=== PATIENT | female | born 1985 | race Caucasian/White ===

== ENCOUNTER 2020-01-08 15:20 | Emergency (ER) | payer OTHER, SELFPAY ==
--- NOTE | ~2020-01-08 | CT_ITS ---
EXAMINATION: CT abdomen pelvis w con DATE: 01/08/2020 16:42 INDICATION: Right lower quadrant abdominal tenderness. TECHNIQUE: Computed tomography (CT) of the abdomen and pelvis was performed with 100 mL Omnipaque 350 intravenous contrast. Automated exposure control and iterative reconstruction technique were employe d. The dose-length product was 608.71 mGy-cm. COMPARISON: CT abdomen and pelvis 05/23/2010 FINDINGS: The visualized portions of the lung bases demonstrate mild atelectasis. No pleural effusion . The heart size is normal. No pericardial effusion. The liver, gallbladder, spleen, pancreas, and ad renal glands are normal. There is a 2 mm stone in right kidney. There is a 10 mm cyst in left kidney. There is a 2 mm stone in left kidney. There are no dilated loops of bowel. There is fat stranding ar ound an epiploic appendage of the colon at the hepatic flexure, consistent with epiploic appendagitis . The appendix is normal. There are no pathologically enlarged lymph nodes. There is no free intraper itoneal fluid. There is mild lumbar spondylosis. IMPRESSION: 1. Epiploic appendagitis involving the hepatic flexure of the colon. Reviewed, dictated and finalized at location A.
[2020-01-08 15:25] VITALS: BP 177/114; PULSE 92; RESP 18; TEMP 37.3; O2SAT 100
[2020-01-08 16:00] LABS: Add Urine Microscopic? NO; Appearance Urine Clear (Clear); Bilirubin Urine Negative (Negative); Blood Urine Negative (Negative); Color Urine Yellow (Yellow); Glucose Urine UA Negative (Negative); Ketones Urine Negative (Negative); Leukocyte Esterase Ur Negative LEU/UL (Negative); Nitrate Urine Negative (Negative); Protein Urine Negative (Negative); Specific Grav Ur 1.028 (1.001-1.035); Urobilinogen Urine Negative mg/dL (<2.0)
[2020-01-08 16:04] LABS: Basophils Percent Auto 0.3 % (0.2-1.2); Eosinophils Percent Auto 0.2 % (0-4.4); Hemoglobin 12.7 g/dL (12.0-15.0); Immature Granulocyte Absolute 0.03 K/mm3 (0.00-0.031); Immature Granulocyte Percent A 0.3 % (0-0.5); Lymphocytes Absolute Auto 2.28 K/mm3 (0.9-3.2); Lymphocytes Percent Auto 24.1 % (18.3-44.2); Mean Corpuscular HGB Conc 31.8 g/dl (32-36); Mean Corpuscular Hemoglobin 26.3 pg (26-34); Mean Platelet Volume 10.3 fl (7.4-10.4); Monocytes Absolute Auto 0.5 K/mm3 (0.1-0.6); Monocytes Percent Auto 5.7 % (2.6-8.5); Neutrophils Absolute Auto 6.6 K/mm3 (1.3-6.7); Neutrophils Percent Auto 69.4 % (45.5-73.1); Platelet Count Result 343 k/mm3 (150-375); Red Blood Count 4.82 M/mm3 (4.2-5.4); Red Cell Distribution Width 15.2 % (11.5-14.5); White Blood Count 9.5 K/mm3 (4.5-10.0)
--- NOTE | 2020-01-08 16:10 | ED.ABDPAIN ---
HPI - Abdominal Pain General Chief Complaint: Abdominal Pain Stated Complaint: abd pain Time Seen by Provider: 01/08/20 16:03 Source: patient Mode of arrival: ambulatory Limitations: no limitations History of Present Illness HPI narrative: This patient is a 34 year old female who presents with c/o right side abdominal pain x 2 day. She states her pain has been constant for 2 days. It is associated with nausea and she has not had anything to eat all day. She denies fever, chills or urinary symptoms. She has not taken anything pain. MD elicited complaint: abdominal pain Onset (ago): day(s) (2) Pain Consistency: constant Pain scale (0-10): 6 Radiation: none Migration to: no migration Associated symptoms: nausea Related Data Home Medications Medication Instructions Recorded Confirmed PNV cmb#[id number]-ferrous fumarate-FA 1 tablet PO DAILY 01/08/20 01/08/20 [] Allergies Allergy/AdvReac Type Severity Reaction Status Date / Time No Known Allergies Allergy Verified 01/08/20 15:29 Review of Systems Review of Systems: All systems reviewed & are unremarkable except as noted in HPI and below Constitutional: Constitutional: Denies chills and Denies fever(s) Gastrointestinal: Gastrointestinal: Reports abdominal pain, Denies constipation, Denies diarrhea, Reports nausea and Denies vomiting Genitourinary: Genitourinary: Denies hematuria, Denies nocturia, Denies dysuria and Denies flank pain Musculoskeletal: Musculoskeletal: Denies back pain PMFSH Past Medical History Medical History (Updated 01/08/20 @ 17:46 by Radha Dalton MD) Gestational diabetes Gestational hypertension Overweight (BMI 25.0-29.9) Surgical History Surgical History (Updated 06/23/19 @ 06:57 by Delmy Adkins CRNA) Previous section X 2 Social History Social History Smoking status: Never smoker Second hand tobacco smoke exposure: No Alcohol intake: never Substance use: never Gender identity (if verbalized by the patient): Female Spiritual care concerns: No Exam Narrative: Exam Narrative: GENERAL: Well-appearing, well-nourished, and in no acute distress. HEAD: Normocephalic, atraumatic EYES: PERRLA and EOMI, conjunctiva clear without discharge THROAT:Mucous membranes moist, Oropharynx normal without erythema, exudate, peritonsillar swelling or fluctuance NECK: Supple, without lymphadenopathy or mass RESPIRATORY: No respiratory distress, Airway patent, Respirations non-labored, Clear to auscultation without rales, rhonchi or wheeze HEART: Regular rate and rhythm. No murmur heard. Normal peripheral pulses. ABDOMEN: Soft, right mid tenderness, nondistended, normal active bowel sounds. No masses. No rebound , No organomegaly. EXTREMITIES: No edema, normal strength with full range of motion. SKIN: Warm, dry, normal color without rash NEURO: Alert and oriented x3. CN 2-12 grossly intact. No focal deficits. PSYCH: Normal mood and affect. Course Reevaluation(s) Reevaluation #1: I discussed with patient that she was found to have epiploic appendagitis. I discussed plan and discharge management. Date: 01/08/20 Time: 17:42 Vital Signs Vital signs: Vital Signs Temperature 99.2 F 01/08/20 15:25 Pulse Rate 92 01/08/20 15:25 Respiratory Rate 18 01/08/20 15:25 Blood Pressure 177/114 H 01/08/20 15:25 Pulse Oximetry 100 01/08/20 15:25 Temperature 99.2 F 01/08/20 15:25 Pulse Rate 83 01/08/20 18:16 Respiratory Rate 14 01/08/20 18:16 Blood Pressure 143/93 H 01/08/20 18:16 Pulse Oximetry 99 01/08/20 18:16 MDM - Abdominal Pain Differential Diagnosis Differential diagnosis: Likely abdominal pain, acute appendicitis, calculus of kidney, constipation, diverticulitis, gastroenteritis and small bowel obstruction Lab Data Attestation: I reviewed the patient's lab results. Result diagrams: 01/08/20 15:57 01/08/20 15:58 Labs: Lab Resul
[2020-01-08] MEDS: MORPHINE SULFATE 4 MG/ML INJ IV PUSH (16:15)
[2020-01-08] MEDS: ONDANSETRON INJ 4 MG/2 ML VIAL IV PUSH (16:15)
[2020-01-08 16:16] LABS: Alanine Aminotransferase 14 U/L (4-35); Albumin Level 4.8 g/dL (3.5-5.1); Alkaline Phosphatase 105 U/L (38-126); Aspartate Amino Transferase 19 U/L (14-36); Bilirubin,Total 0.3 mg/dL (0.2-1.3); Blood Urea Nitrogen 13 mg/dL (7-17); Calcium 9.4 mg/dL (8.4-10.2); Carbon Dioxide 24 mmol/L (22-30); Chloride 103 mmol/L (98-107); Estimated CRCL calculation 129 ml/min; Estimated Glomerular Filt Rate > 60; Glucose 96 mg/dL (65-105); Lipase 122 U/L (23-300); Potassium 3.4 mmol/L (3.4-5.0); Sodium 136 mmol/L (137-145)
[2020-01-08] MEDS: LACTATED RINGERS 1,000 ML 999 ML IV CONT (16:17)
[2020-01-08 16:47] VITALS: BP 154/100; PULSE 100; RESP 13; O2SAT 100
[2020-01-08 17:48] VITALS: BP 140/93; PULSE 85; RESP 14; O2SAT 98
[2020-01-08] MEDS: KETOROLAC 30 MG/ML VIAL (*BKC) IV PUSH (17:51)
[2020-01-08 18:16] VITALS: BP 143/93; PULSE 83; RESP 14; O2SAT 99
== END 2020-01-08 18:17 | disposition home or self-care (01) ==
PROVIDERS: Emergency Provider General Practice; PCP Family Medicine
DX: K63.89 Other specified diseases of intestine (principal)
CPT/HCPCS: 36415; 74177; 80053; 81003; 81025; 83690; 85025; 96361; 96374; 96375; 99284; J1885; J2270; J2405; J7120; Q9967

== ENCOUNTER → 2021-05-12 09:31 | Outpatient (REF) | payer OTHER, SELFPAY | LOC: ANHLAB 09:31 | PROVIDERS: PCP Family Medicine; Visit Provider Nurse Practitioner | DX: R22.9 Localized swelling, mass and lump, unspecified (principal) | CPT/HCPCS: 88304 ==

== ENCOUNTER 2022-01-13 04:41 | Day surgery (SDC) | payer OTHER, SELFPAY ==
[2022-01-03 15:08] VITALS: BMI 28.0
--- NOTE | 2022-01-03 15:15 | PC.NURSE ---
Report to the Outpatient Waiting Room, entrance under the green pavilion located off [address], at time 0900 on date 01/13/22. OR Time: 1100. - You and your visitor will be asked a series of questions to screen for COVID 19 for your protection. - Only one visitor is allowed at this time. - The patient visitor is requested to leave or wait in car when not with patient. - A mask is required within the hospital. Patients may have clear liquids (water, carbonated beverages, clear teas, apple juice) until 3 hours prior to surgery with a maximum of 20 ounces. - No food from midnight until time of surgery Take the following medications with a SIP of water the morning of surgery: NONE Medications to discontinue per physician: VITAMINS/SUPPLEMENTS Date to take last dose: 01/09/22 Please no make-up, nail andorran, hairspray, perfume, deodorant, or body powder the day of surgery. No jewelry (including any body piercings) or valuables the day of surgery, leave them at home. Please take a shower or bath the night before, or the morning of, surgery with an antibacterial soap. Wear comfortable, loose fitting clothing. - Jewelry must be removed prior to entering the operating room. Rings and piercings that are not removed may be cut off. - The hospital will not accept responsibility for valuables. - Please leave all valuables, including medications, at home the day of surgery. If you are going home after surgery, a licensed courier delivery driver must drive you home. - NO public transportation without another adult. - We recommend that an adult stay with you for 24 hours following discharge. - We also recommend that you do not drive, make important decision, drink alcoholic beverages, or take any drugs that were not prescribed by your health care provider for at least 24 hours after your discharge time. Follow any additional instructions given to you from your surgeon. If you or anyone in your household have experienced Covid symptoms in the past week, please notify your surgeon or the nurse liaison at the phone number below for possible testing. Telephone instructions given to PT - NICK BATISTA and asked if any additional questions and then verbalized understanding. Patient advised to call surgeon office or pre surgery nurse liaison [phone] if any additional questions.
--- NOTE | 2022-01-12 13:30 | PM.IMHP ---
H&P: HPI History of Present Illness Date/Time: 01/12/22 13:30 Chief Complaint: stress incontinence Narrative: this is a young woman with stress urinary incontinence. She would like it surgically corrected. She is here today for urethral sling her stress incontinence is confirmed on urodynamic Review of Systems Review of Systems: All systems reviewed & are unremarkable except as noted in HPI and below PMFSH Past Medical History Medical History Gestational diabetes Gestational hypertension Overweight (BMI 25.0-29.9) Surgical History Surgical History Previous section X 3 Family History Family History Mother Family history of thyroid disease Sibling Family history of thyroid disease Grandparent Family history of heart disease in male family member before age 55 Diabetes mellitus Social History Social History Smoking status: Never smoker Second hand tobacco smoke exposure: No Alcohol intake: never Substance use: never Substance use type: does not use Living arrangements: with family Gender identity (if verbalized by the patient): Female Spiritual care concerns: No Meds Home Medications and Allergies Home Medications Medication Instructions Recorded Confirmed Type ascorbic acid (vitamin C) 500 mg 500 mg PO DAILY 01/03/22 01/03/22 History tablet (Vitamin C) multivitamin 1 tablet PO DAILY 01/03/22 01/03/22 History zinc 50 mg tablet 50 mg PO DAILY 01/03/22 01/03/22 History lisinopril 10 mg tablet 10 mg PO DAILY 01/04/22 01/04/22 History Allergies Allergy/AdvReac Type Severity Reaction Status Date / Time No Known Allergies Allergy Verified 01/03/22 15:07 Exam Narrative: no acute distress alert orient x3 normal breathing positive urethral mobility Assessment and Plan Assessment and plan (1) AVEL (stress urinary incontinence, female): Code(s): N39.3 - Stress incontinence (female) (male) Status: Acute Assessment and Plan: plan for urethral sling. She understands the risks of bleeding, infection, obstructive voiding, mesh exposure, lack of efficacy. She agrees to proceed
--- NOTE | 2022-01-12 14:52 | P.PNAN_ITS ---
Anes - Initial Pre Proc Eval Procedure: Operation Date: 01/13/22 11:00 Proposed Procedures p Urethral Sling - Homero Farah MD Date/Time: 01/12/22 14:52 Surgeon: Homero Farah MD Pre Op Diagnosis: stress incontinence Patient Data Age: 36 Gender: F Height: 1.63 m Weight: 74 kg Allergies Allergy/AdvReac Type Severity Reaction Status Date / Time No Known Allergies Allergy Verified 01/03/22 15:07 Home Medications Medication Instructions Recorded Confirmed Type ascorbic acid (vitamin C) 500 mg 500 mg PO DAILY 01/03/22 01/03/22 History tablet (Vitamin C) multivitamin 1 tablet PO DAILY 01/03/22 01/03/22 History zinc 50 mg tablet 50 mg PO DAILY 01/03/22 01/03/22 History lisinopril 10 mg tablet 10 mg PO DAILY 01/04/22 01/04/22 History Patient hx anesthesia problems: none Family hx anesthesia problems: none Results Review: All pre-operative results and documents have been reviewed as part of the pre- operative evaluation. [facility] Past Medical History Medical History (Updated 01/12/22 @ 14:52 by Rogelio Jerez MD) Gestational diabetes Gestational hypertension HTN (hypertension) Overweight (BMI 25.0-29.9) Surgical History Surgical History Previous section X 3 Family History Family History Mother Family history of thyroid disease Sibling Family history of thyroid disease Grandparent Family history of heart disease in male family member before age 55 Diabetes mellitus Social History Social History Smoking status: Never smoker Second hand tobacco smoke exposure: No Alcohol intake: never Substance use: never Substance use type: does not use Living arrangements: with family Gender identity (if verbalized by the patient): Female Spiritual care concerns: No Anes - Eval Final PreProcedure Day of Procedure 01/12/22 14:52 Patient weight: overweight Heart: regular rate and rhythm Lungs: clear to auscultation and normal air movement Airway: Mallampati scale class II Neurological: alert and oriented Last oral intake: >/= 8 hours ASA classification: II Emergent: no Anesthetic plan: proceed Anesthesia type and monitoring: general Results Review: All pre-operative results and documents have been reviewed as part of the pre- operative evaluation. Informed Consent: The patient's anesthetic plan and its attendant risks and benefits were discussed with the patient/family/POA. Questions were solicited and answers provided to the satisfaction of the patient/family/POA.
--- NOTE | 2022-01-13 07:17 | WPDHPUPDATE1 ---
History and Physical Update Update Date/Time: 01/13/22 07:17 History and Physical has been reviewed, including an updated exam of the patient. There are NO changes in the patient's condition. Risks, benefits, and alternatives have been discussed and questions answered. Patient agrees to proceed with procedure.
[2022-01-13 09:34] VITALS: BMI 28.0
[2022-01-13 09:35] VITALS: BP 141/89; PULSE 74; RESP 16; TEMP 37.6; O2SAT 100
[2022-01-13] MEDS: LACTATED RINGERS 1,000 ML 30 ML IV CONT (09:44)
[2022-01-13] MEDS: ceFAZolin 2 GM/D5W 50 ML 2 GM/50 ML BAG IVPB (10:52)
[2022-01-13] MEDS: LIDO 2%/EPINEPHRINE 1:100,000 20 ML VIAL INFILTRATE (11:13)
[2022-01-13 11:26] VITALS: BP 146/70; PULSE 100; RESP 16; O2SAT 95
--- NOTE | 2022-01-13 11:29 | W.PM.PROC2 ---
Procedure Note - Detailed Date of Procedure 01/13/22 Pre-op Diagnosis stress incontinence Post-op Diagnosis Same Procedure Performed mid urethral sling cystoscopy Surgeon Homero Farah MD Roll Threader Operator none Anesthesia MAC Indications This is a female with confirm stress urinary incontinence. She desires surgical correction. She understands the risks of bleeding, infection, injury to the urinary tract, vaginal mesh extrusion, urinary tract mesh erosion, obstructive voiding requiring a secondary procedure, hip and leg pain, dyspareunia, inability to improve overactive bladder symptoms. She agrees to proceed. Findings Uncomplicated urethral sling Description of Procedure She was correctly identified. Informed consent obtained. She was brought the operating room. She was given appropriate anesthesia. She was given appropriate perioperative antibiotics. A time-out performed. I marked out the site of the inner thigh incisions. I anesthetized the skin and made those incisions. I anesthetized the anterior vaginal wall over the mid urethra. I made a 1 cm incision. I dissected out laterally taking great care not to injure the refilled vaginal wall. I passed the helical trocars. First on the left. Then on the right. I did this from the thigh incision towards the vaginal incision. The sling was connected to the trocars and brought out through the thigh incision. I tensioned the sling appropriately. I cut and the plastic sheaths. I then closed the incision with 2 0 Vicryl. On cystoscopy there is no tumors or surgical artifact. There was no surgical artifact in the urethra. I cut the excess sling material. Close incisions with glue. She was awakened and transferred to the PACU in stable condition. Implants Urethral sling Estimated Blood Loss 40 Drains No Packing No Pathology None sent Complications No immediate complications Condition Stable Disposition PACU
[2022-01-13 11:50] VITALS: BP 135/75; PULSE 81; RESP 20
[2022-01-13 12:15] VITALS: BP 140/88; PULSE 66; RESP 20
== END 2022-01-13 12:25 | disposition home or self-care (01) ==
PROVIDERS: PCP Physician Assistant; Visit Provider Urology
PROC: (CPT 57288; principal; 2022-01-13 11:00)
DX: N39.3 Stress incontinence (female) (male) (principal); I10 Essential (primary) hypertension
CPT/HCPCS: 57288; A9270; C1771; J0690; J2250; J2704; J3010; J7030; J7120

== ENCOUNTER 2023-03-28 11:46 | Outpatient (CLI) | payer OTHER, SELFPAY ==
--- NOTE | ~2023-03-28 | XR_ITS ---
EXAMINATION: XR abdomen/kub 1V DATE: 03/28/2023 12:07 INDICATION: Left-sided renal stone TECHNIQUE: A supine view of the abdomen on 2 radiographs was obtained. COMPARISON: CT dated 01/08/2020 FINDINGS: 3 x 1 mm thin linear stone at the lower pole of the left kidney. 3 mm round calcification at the infe rior left pelvis without correlate on the prior CT which could represent a new phlebolith or stone at the distalmost left ureter/ureterovesicular junction normal amount of gas and stool scattered throug hout the colon. No dilated loops of gas-filled bowel to suggest obstruction. Visualized portions of t he lung bases are clear. IMPRESSION: 1. 3 mm round calcification in the left hemipelvis indeterminate for phleboliths versus stone in the distalmost left ureter/ureterovesicular junction. 2. Additional 3 x 1 mm stone at the lower pole of the left kidney. Reviewed, dictated and finalized at location A. IMPRESSION: 1. 3 mm round calcification in the left hemipelvis indeterminate for phlebolith s versus stone in the distalmost left ureter/ureterovesicular junction. 2. Additional 3 x 1 mm stone at the lower pole of the left kidney.
== END 2023-03-28 11:47 | disposition home or self-care (01) ==
PROVIDERS: PCP Physician Assistant; Visit Provider Urology
DX: N20.0 Calculus of kidney (principal)
CPT/HCPCS: 74018

== ENCOUNTER 2023-03-29 13:29 | Outpatient (CLI) | payer OTHER, SELFPAY ==
--- NOTE | ~2023-03-29 | CT_ITS ---
EXAMINATION: CT abdomen pelvis wo con DATE: 03/29/2023 14:10 INDICATION: Kidney stone. Left lower quadrant abdominal pain. TECHNIQUE: Computed tomography (CT) of the abdomen and pelvis was performed without intravenous contr ast. Automated exposure control and iterative reconstruction technique were employed. The dose-length product was 543.58 mGy-cm. COMPARISON: CT abdomen and pelvis 01/08/2020 FINDINGS: The visualized portions of the lung bases are clear without pneumonia or pleural effusion. The heart size is normal. No pericardial effusion. The liver, gallbladder, spleen, pancreas, and adre nal glands are normal. There is a 3 mm stone in right kidney. There is a 2 mm stone in left kidney. T here are no dilated loops of bowel. The appendix is normal. There are no pathologically enlarged lymp h nodes. There is no free intraperitoneal fluid. There is mild thoracic and lumbar spondylosis. IMPRESSION: 1. Small bilateral nonobstructing kidney stones. Reviewed, dictated and finalized at location E.
== END 2023-03-29 13:30 | disposition home or self-care (01) ==
LOC: ANHIMG 13:31
PROVIDERS: PCP Physician Assistant; Visit Provider Urology
DX: N20.0 Calculus of kidney (principal)
CPT/HCPCS: 74176

== ENCOUNTER 2023-11-13 12:18 | Outpatient (CLI) | payer OTHER, SELFPAY ==
--- NOTE | ~2023-11-13 | XR_ITS ---
Supine and upright views of the abdomen Clinical history: Abdominal pain Findings: Bowel gas pattern is nonspecific. No evidence for obstruction or free air. No abnormal mass lesion or calcification is seen. Osseous structures are intact. Impression: No significant abnormality is seen. Reviewed, dictated and finalized at [facility]. Impression: No significant abnormality is seen.
== END 2023-11-13 12:19 | disposition home or self-care (01) ==
PROVIDERS: PCP Physician Assistant; Visit Provider Urology
DX: N20.0 Calculus of kidney (principal)
CPT/HCPCS: 74018

== ENCOUNTER 2024-09-14 02:53 | Emergency (ER) | payer OTHER, SELFPAY ==
--- NOTE | ~2024-09-14 | CT_ITS ---
CLINICAL INDICATION: Left flank pain COMPARISON: 03/29/2023. TECHNIQUE: Multiple contiguous axial images of the abdomen and pelvis were performed without the admi nistration of intravenous contrast The dose-length product (DLP) was 733.28 mGy-cm. Automated exposure control and iterative reconstruction technique were employed. FINDINGS/OBSERVATIONS: Visualized lower thorax: The bilateral lung bases are clear. The heart is of normal size, without pericardial effusion. Small hiatal hernia is present. Liver: The liver demonstrates homogeneous attenuation and is not enlarged measuring 18 cm in longitudinal di mension. Gallbladder and biliary system: The gallbladder is only minimally distended, and otherwise unremarkable. Pancreas: Limited evaluation of the pancreas secondary to the lack of intravenous contrast. Spleen: The spleen demonstrates homogeneous attenuation and is not enlarged measuring 8 cm in longitudinal di mension. Kidneys: Left-sided hydroureteronephrosis secondary to a 4 mm calculus within the proximal left ureter. The right kidney and ureter are unremarkable. Adrenal glands: Unremarkable. Gastrointestinal tract: Fecal stasis within the colon. Appendix: The appendix is not definitively visualized. However, no pericecal inflammatory change is identified suggest the presence of acute appendicitis. Vasculature: Unremarkable. Lymph nodes: Limited evaluation without intravenous contrast. Pelvic structures: The bladder is minimally distended, and otherwise unremarkable. The uterus is anteverted and retroflexed, enlarged and nodular. Body wall and musculoskeletal: Small fat-containing umbilical hernia. No significant degenerative disease within the lower thoracic or lumbosacral spine. IMPRESSION: Left-sided hydroureteronephrosis secondary to a 4 mm calculus within the proximal left ureter. Fibroid uterus. Reviewed, dictated and finalized at location A. [facility] IMPRESSION: Left-sided hydroureteronephrosis secondary to a 4 mm calculus within the proxim al left ureter. Fibroid uterus.
[2024-09-14 02:54] VITALS: BP 132/80; PULSE 58; RESP 15; TEMP 36.6; O2SAT 100
--- OUTSIDE RECORDS SUMMARY | 2024-09-14 02:54 | XMS_ITS | Referral Summary ---
Author Organization [facility] Address [address] [place] [address] Care Team Providers Care Chain Mortiser Operator Name Role Phone Angel Hernandez MD Unavailable [phone] Source Comments [facility],non-owned Affiliates and Associated Physician Practices is amultiple site organization consisting of ambulatory clinics and hospital sitesin [place], [place], [place] and [place]. This disclosure is being madepursuant to the Care Everywhere program and may not contain all information available regarding this patient. Last updated 18.[facility] Allergies No known active allergies Medications * Be aware that medications may not be up to date on this document. Alwaysverify current medications with the patient. Medication Sig Dispensed Refills Start Date End Date Status guanFACINE (TENEX) 2 MG tablet Take 2 mg by mouth at bedtime Active benzonatate (TESSALON) 200 MG capsuleIndications:A cute maxillary sinusitis, recurrence not specified Take 1 capsule by mouth 3 times daily as needed for Cough 30 capsule 10/02/2018 Active Social History Tobacco Use Types Packs/Day Years Used Date Smoking Tobacco: Never Smokeless Tobacco: Never Alcohol Use Standard Drinks/Week Comments No 0 (1 standard drink = 0.6 oz pur e alcohol) Sex and Gender Information Value Date Recorded Sex Assigned at Not on file Gender Identity Not on file Sexual Orientation Not on file Last Filed Vital Signs Vital Sign Reading Time Taken Comments Blood Pressure 126/84 10/02/2018 4:27 PM EXPENDITURE REQUISITION CLERK Pulse 88 10/02/2018 4:27 PM EXPENDITURE REQUISITION CLERK Temperature 36.7 C (98 F) 10/02/2018 4:27 PM EXPENDITURE REQUISITION CLERK Respiratory Rate 16 10/02/2018 4:27 PM EXPENDITURE REQUISITION CLERK Oxygen Saturation 98% 10/02/2018 4:27 PM EXPENDITURE REQUISITION CLERK Inhaled Oxygen Concentration - - Weight 72.6 kg (160 lb) 10/02/2018 4:27 PM EXPENDITURE REQUISITION CLERK Height 160 cm (5' 3 ) 10/02/2018 4:27 PM EXPENDITURE REQUISITION CLERK Body Mass Index 28.34 10/02/2018 4:27 PM EXPENDITURE REQUISITION CLERK Plan of Treatment Not on file Care Teams Chain Mortiser Operator Relationship Specialty Start Date End Date Angel Hernandez MD PCP - OBGYN 07/20/08
--- OUTSIDE RECORDS SUMMARY | 2024-09-14 02:54 | XMS_ITS | Patient Health Summary ---
Author Organization [facility] ([employer] Address [address] [place] [address] Care Team Providers Care Signals Collection Technician Name Role Phone Angel Hernandez MD Unavailable [phone] Note from [facility],non-owned Affiliates and Associated Physician Practices is amultiple site organization consisting of ambulatory clinics and hospital sitesin [place] and [place]. This disclosure is being madepursuant to the Care Everywhere program and may not contain all information available regarding this patient. Last updated 18.[facility] ([employer] Allergies No known active allergies Medications * Be aware that medications may not be up to date on this document. Alwaysverify current medications with the patient. * guanFACINE (TENEX) 2 MG tablet Take 2 mg by mouth at bedtime * benzonatate (TESSALON) 200 MG capsule(Started 10/02/2018) Take 1 capsule by mouth 3 times daily as needed for Cough Social History Tobacco Use Types Packs/Day Years [...] Comments Blood Pressure 126/84 10/02/2018 4:27 PM ELECTRON GUN ASSEMBLER Pulse 88 10/02/2018 4:27 PM ELECTRON GUN ASSEMBLER Temperature 36.7 C (98 F) 10/02/2018 4:27 PM ELECTRON GUN ASSEMBLER Respiratory Rate 16 10/02/2018 4:27 PM ELECTRON GUN ASSEMBLER Oxygen Saturation 98% 10/02/2018 4:27 PM ELECTRON GUN ASSEMBLER Inhaled Oxygen Concentration - - Weight 72.6 kg (160 lb) 10/02/2018 4:27 PM ELECTRON GUN ASSEMBLER Height 160 cm (5' 3 ) 10/02/2018 4:27 PM ELECTRON GUN ASSEMBLER Body Mass Index 28.34 10/02/2018 4:27 PM ELECTRON GUN ASSEMBLER Procedures * STREP A SCREEN - POINT OF CARE (AMB) STL(Performed 06/27/2017) Performed for Acute nasopharyngitis Results * STREP A SCREEN (06/27/2017) Strep A Rapid POCT Negative Negative Strep A Internal Control Present Lot # [id number] Expiration Date [id number] Throat ENTIRE THROAT (SURFACE REGION OF NECK) / Unknown 06/27/2017 [facility] PIN SORTER AND BAGGER-RN POOL LAB - POINT OF CARE ORDERABLES Care Teams Signals Collection Technician Relationship Specialty Start Date End Date Angel Hernandez MD PCP - OBGYN 07/20/08
--- OUTSIDE RECORDS SUMMARY | 2024-09-14 02:54 | XMS_ITS | Clinical Summary ---
Author Organization [facility] [address] [facility] Address [address] [place] [address] Care Team Providers Care Product Marketing Intern Name Role Phone Marcia Helms NP Primary Care Provider [phone] Allergies No known active allergies Medications yexugzgk-twvn-QW- calcium-mins 18 mg iron-400 mcg-500 mg Ca tablet Take by mouth daily Active ascorbic acid, vitamin C, 250 mg tablet,chewable Take by mouth daily Active vitamin b complex tablet Take 1 tablet by mouth daily Active riboflavin (Vitamin B-2) 100 mg tablet 3 Active lisinopriL (PRINIVIL,ZESTRIL ) 20 mg tabletIndications :Essential hypertension Take 1 tablet (20 mg total) by mouth daily 30 tablet 11 3 Active aspirin 81 mg chewable tablet Take 1 tablet (81 mg total) by mouth daily Active coenzyme Q10 10 mg capsule Take 1 capsule (10 mg total) by mouth daily Active metoprolol XL (TOPROL-XL) 25 mg extended release tabletIndications :Palpitations TAKE 1 TABLET(25 MG) BY MOUTH DAILY 90 tablet 4 Active Active Problems Problem Noted Date Diagnosed Date Hypersomnia 06/28/2023 Snoring 04/26/2023 Assessment & Plan (06/28/2023 2:21 PM MOSQUITO SPRAYER): Due to continuing symptoms of snoring and hypersomnia along with a normal home sleep test I have ordered a nocturnal polysomnogram split night protocol if necessary, no MSLT. Assessment & Plan (05/24/2023 3:48 PM CDT): The patient presents with loud snoring and daytime hypersomnia. I have recommended proceeding with a nocturnal polysomnogram with a split night protocol if necessary and no MSLT. She will follow up here in 3 months. Obesity (BMI 30-39.9) 01/29/2023 Assessment & Plan (04/26/2023 8:16 AM CDT): Discussed the patients BMI: The BMI is above average BMI management is complete. BMI follow-up includes: Nutrition Counseling and education provided Assessment & Plan (01/29/2023 7:55 AM CDT): BMI Follow-up includes: Discussed diet and exercising counseling. BMI 30.0-30.9,adult 01/29/2023 Assessment & Plan (01/29/2023 7:55 AM CDT): BMI Follow-up includes: Discussed diet and exercising counseling.BMI Follow-up includes: Discussed diet and exercising counseling. Palpitations 11/10/2022 Assessment & Plan (11/10/2022 8:52 AM CDT): This is a significant, separately identifiable problem that was evaluated and managed on the same day as the wellness exam Rosacea 02/09/2022 Assessment & Plan (02/09/2022 7:31 AM CDT): Will resume metrogel bid Will refer to sheyla to discuss further her desire to resume accutane Physical exam, annual 01/04/2022 Essential hypertension 01/04/2022 Assessment & Plan (02/09/2022 7:31 AM CDT): Patient advised to continue medications the same at this time. They will monitor home bp with goal 120-130/80s. Assessment & Plan (01/04/2022 9:20 AM CDT): Add lisinopril daily. They will monitor home bp with goal 120-130/80s. Fasting labs entered, will notify patient of results as available Discussed holter for palpitations, she declines at this time. Stress incontinence 01/04/2022 Assessment & Plan (01/04/2022 9:20 AM CDT): Has appt pending with urology for stress incontinence Resolved Problems Problem Noted Date Diagnosed Date Resolved Date BMI 29.0-29.9,adult 11/10/2022 01/30/20 23 BMI 30.0-30.9,adult 01/04/2022 12/15/19 23 Assessment & Plan (01/04/2022 9:20 AM CDT): Discussed the patient's BMI. The BMI is above average. BMI management plan is completed. BMI Follow-up includes: nutrition counseling, exercise counseling and education provided. Immunizations Immunization Administration Dates Next Due Influenza, Quadrivalent, Justine l Culture-based MDCK, Preservative Free, Antibiotic Free, Intramuscular 05/05/2019 Influenza, Unspecified 04/16/2023,05/13/2022 Tdap 05/18/2016 Surgical History Surgery Date Site/Laterality Comments BLADDER SUSPENSION SECTION Medical History Medical History Date Comments Hypertension Family History Medical History Relation Name Comments Hypertension Father No Known Problems Maternal Grandfather Thyroid disease Mother No Known Problems Paternal Grandfather Heart disease Paternal Grandmother Thyroid disease Sister Relation Name Status Comments Father Alive Maternal Grandfather Maternal Grandmother Alive Mother Alive Paternal Grandfather Paternal Grandmother Sister Alive Social History Tobacco Use Types Packs/Day Years Used Date Smoking Tobacco: Never Smokeless Tobacco: Never Tobacco Cessation:Counseling Given: Not Answered AUDIT-C Answer Date Recorded Q1: How often do you have a drink containing alcohol? Never 02/09/2022 Q2: How many drinks containi ng alcohol do you have on a typical day when you are drinking? Patient does not drink Q3: How often do you have si x or more drinks on one occasion? 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 Not on file Not on leonel e Obstetrics History Last Filed Vital Signs Vital Sign Reading Time Taken Comments Blood Pressure 136/86 06/28/2023 2:10 PM MOSQUITO SPRAYER Pulse 94 06/28/2023 2:10 PM MOSQUITO SPRAYER Temperature 37 C (98.6 F) 06/28/2023 2:10 PM MOSQUITO SPRAYER Respiratory Rate 18 06/28/2023 2:10 PM MOSQUITO SPRAYER Oxygen Saturation 98% 06/28/2023 2:10 PM MOSQUITO SPRAYER Inhaled Oxygen Concentration - - Weight 79.4 kg (175 lb) 06/28/2023 2:10 PM MOSQUITO SPRAYER Height 160 cm (5' 3 ) 06/28/2023 2:10 PM MOSQUITO SPRAYER Body Mass Index 31 06/28/2023 2:10 PM MOSQUITO SPRAYER Plan of Treatment Health Maintenance Due Date Last Done Comments Cervical Cancer Screening 1985 Hepatitis C Screening 1985 Varicella Vaccines (1 of 2 - 13+ 2-dose series) 1998 Hepatitis B Screening 2003 Regular Well Visit/Exam 18-64 11/11/2023 11/10/2022 Covid-19 Vaccine ( season) 2024 05/13/2021, 08/09/2020, 07/19/2020 Influenza Vaccine (#1) 2024 , 05/13/2022, 05/05/2019 Depression Screening 04/26/2024 04/26/2023, 01/29/2023, 12/14/2022, Additional history exists DTaP/Tdap/Td Vaccine (2 - Td or Tdap) 05/18/2026 05/18/2016 HPV Vaccines Aged Out No longer eligi ble based on patient's age to complete this topic Pneumococcal vaccine <65 Aged Out No longer eligible based on patient's age to complete this topic Insurance [facility] Care Teams Product Marketing Intern Relationship Specialty Start Date End Date Marcia Helms NP [address] [facility] [address] [place] [address] PCP - General Internal Medicine 11/10/22
--- OUTSIDE RECORDS SUMMARY | 2024-09-14 02:55 | XMS_ITS | Referral Summary ---
Author Organization [facility] [address] [facility] Address [address] [place] [address] Care Team Providers Care Director Of Epidemiology Name Role Phone Marcia Helms NP Primary Care Provider [phone] Allergies No known active allergies Medications dyksevug-kasi-VU- calcium-mins 18 mg iron-400 mcg-500 mg Ca [...] 04/26/2023 Assessment & Plan (06/28/2023 2:21 PM LAUNDRY SUPERINTENDENT): Due to continuing symptoms of snoring and [...] Intramuscular 05/05/2019 Influenza, Unspecified 04/16/2023,05/13/2022 Tdap 05/18/2016 Social History Tobacco Use Types Packs/Day Years [...] 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 file Not on leonel e Last Filed Vital Signs Vital Sign Reading Time Taken Comments Blood Pressure 136/86 06/28/2023 2:10 PM LAUNDRY SUPERINTENDENT Pulse 94 06/28/2023 2:10 PM LAUNDRY SUPERINTENDENT Temperature 37 C (98.6 F) 06/28/2023 2:10 PM LAUNDRY SUPERINTENDENT Respiratory Rate 18 06/28/2023 2:10 PM LAUNDRY SUPERINTENDENT Oxygen Saturation 98% 06/28/2023 2:10 PM LAUNDRY SUPERINTENDENT Inhaled Oxygen Concentration - - Weight 79.4 kg (175 lb) 06/28/2023 2:10 PM LAUNDRY SUPERINTENDENT Height 160 cm (5' 3 ) 06/28/2023 2:10 PM LAUNDRY SUPERINTENDENT Body Mass Index 31 06/28/2023 2:10 PM LAUNDRY SUPERINTENDENT Plan of Treatment Not on file Insurance [facility] Care Teams Director Of Epidemiology Relationship Specialty Start Date End Date Marcia Helms NP [address] [facility] [address] [place] [address] PCP - General Internal Medicine 11/10/22
--- OUTSIDE RECORDS SUMMARY | 2024-09-14 02:55 | XMS_ITS | Clinical Summary ---
Author Organization [facility] [employer] Address [address] [place] [address] Care Team Providers Care Lopper Name Role Phone Angel Hernandez MD Unavailable [phone] Source Comments [facility] [employer],non-owned Affiliates and Associated Physician Practices is amultiple site organization consisting of ambulatory clinics and hospital sitesin [place], [place], [place] and [place]. This disclosure is being madepursuant to the Care Everywhere program and may not contain all information available regarding this patient. Last updated 18.[facility] [employer] Allergies No known active allergies Medications * [...] Comments Blood Pressure 126/84 10/02/2018 4:27 PM CLIENT ACCOUNT SPECIALIST Pulse 88 10/02/2018 4:27 PM CLIENT ACCOUNT SPECIALIST Temperature 36.7 C (98 F) 10/02/2018 4:27 PM CLIENT ACCOUNT SPECIALIST Respiratory Rate 16 10/02/2018 4:27 PM CLIENT ACCOUNT SPECIALIST Oxygen Saturation 98% 10/02/2018 4:27 PM CLIENT ACCOUNT SPECIALIST Inhaled Oxygen Concentration - - Weight 72.6 kg (160 lb) 10/02/2018 4:27 PM CLIENT ACCOUNT SPECIALIST Height 160 cm (5' 3 ) 10/02/2018 4:27 PM CLIENT ACCOUNT SPECIALIST Body Mass Index 28.34 10/02/2018 4:27 PM CLIENT ACCOUNT SPECIALIST Plan of Treatment Health Maintenance Due Date Last Done Comments PAP SMEAR 1985 HIV SCREENING 2000 HEPATITIS C SCREENING 08/30/2003 DTAP/TDAP/TD VACCINES (1 - Tdap) 2004 HEPATITIS B VACCINE (1 of 3 - 19+ 3-dose series) 2004 COVID-19 VACCINE ( - 2023-2 5 season) 2024 INFLUENZA VACCINE (#1) 2024 DEPRESSION SCREENING 07/30/2024 ZOSTER VACCINE (1 of 2) 2035 HIB VACCINE Aged Out No longer eligi ble based on patient's age to complete this topic HPV VACCINE Aged Out No longer eligi ble based on patient's age to complete this topic MENINGOCOCCAL (Group B) VACCINE Aged Out No longer eligible based on patient's age to complete this topic MENINGOCOCCAL VACCINE Aged Out No emeterio alex eligible based on patient's age to complete this topic PNEUMOCOCCAL VACCINE Aged Out No long er eligible based on patient's age to complete this topic Care Teams Lopper Relationship Specialty Start Date End Date Angel Hernandez MD PCP - OBGYN 07/20/08
--- OUTSIDE RECORDS SUMMARY | 2024-09-14 03:41 | XMS_ITS | Patient Health Summary ---
Author Organization [facility] [employer] Address [address] [place] [address] Care Team Providers Care Hogshead Filler Name Role Phone Angel Hernandez MD Unavailable [phone] Note from [facility],non-owned Affiliates and Associated Physician Practices is amultiple site organization consisting of ambulatory clinics and hospital sitesin [place], [place], [place] and [place]. This disclosure is being madepursuant to the Care Everywhere program and may not contain all information available regarding this patient. Last updated 18.[facility] [employer] Allergies No known active allergies Medications * [...] Comments Blood Pressure 126/84 10/02/2018 4:27 PM FINANCIAL ANALYSIS ADVISOR Pulse 88 10/02/2018 4:27 PM FINANCIAL ANALYSIS ADVISOR Temperature 36.7 C (98 F) 10/02/2018 4:27 PM FINANCIAL ANALYSIS ADVISOR Respiratory Rate 16 10/02/2018 4:27 PM FINANCIAL ANALYSIS ADVISOR Oxygen Saturation 98% 10/02/2018 4:27 PM FINANCIAL ANALYSIS ADVISOR Inhaled Oxygen Concentration - - Weight 72.6 kg (160 lb) 10/02/2018 4:27 PM FINANCIAL ANALYSIS ADVISOR Height 160 cm (5' 3 ) 10/02/2018 4:27 PM FINANCIAL ANALYSIS ADVISOR Body Mass Index 28.34 10/02/2018 4:27 PM FINANCIAL ANALYSIS ADVISOR Procedures * STREP A SCREEN - POINT OF CARE (AMB) STL(Performed 06/27/2017) Performed for Acute nasopharyngitis Results * STREP A SCREEN (06/27/2017) Strep A Rapid POCT Negative Negative Strep A Internal Control Present Lot # [id number] Expiration Date [id number] Throat ENTIRE THROAT (SURFACE REGION OF NECK) / Unknown 06/27/2017 Laz Hooks FIVE ROLL REFINER BATCH MIXER-ORACLE EBS CONSULTANT LAB - POINT OF CARE ORDERABLES Care Teams Hogshead Filler Relationship Specialty Start Date End Date Angel Hernandez MD PCP - OBGYN 07/20/08
--- OUTSIDE RECORDS SUMMARY | 2024-09-14 03:41 | XMS_ITS | Referral Summary ---
Author Organization [facility] [employer] Address [address] [place] [address] Care Team Providers Care Director Of Business Operations Name Role Phone Angel Hernandez MD Unavailable Source Comments [facility] [employer],non-owned Affiliates and Associated Physician Practices is amultiple site organization consisting of ambulatory clinics and hospital sitesin [place], [place] and [place]. This disclosure is being madepursuant to the Care Everywhere program and may not contain all information available regarding this patient. Last updated 18.[facility] [employer] Allergies No known active allergies Medications * [...] Comments Blood Pressure 126/84 10/02/2018 4:27 PM RISK LEAD Pulse 88 10/02/2018 4:27 PM RISK LEAD Temperature 36.7 C (98 F) 10/02/2018 4:27 PM RISK LEAD Respiratory Rate 16 10/02/2018 4:27 PM RISK LEAD Oxygen Saturation 98% 10/02/2018 4:27 PM RISK LEAD Inhaled Oxygen Concentration - - Weight 72.6 kg (160 lb) 10/02/2018 4:27 PM RISK LEAD Height 160 cm (5' 3 ) 10/02/2018 4:27 PM RISK LEAD Body Mass Index 28.34 10/02/2018 4:27 PM RISK LEAD Plan of Treatment Not on file Care Teams Director Of Business Operations Relationship Specialty Start Date End Date Angel Hernandez MD PCP - OBGYN 07/20/08
--- OUTSIDE RECORDS SUMMARY | 2024-09-14 03:41 | XMS_ITS | Clinical Summary ---
Author Organization [facility] [email or web address] Address [address] [place] [address] Care Team Providers Care Coagulating Drying Supervisor Name Role Phone Angel Hernandez MD Unavailable [phone] Source Comments [facility] [email or web address],non-owned Affiliates and Associated Physician Practices is amultiple site organization consisting of ambulatory clinics and hospital sitesin [place], [place], [place] and [place]. This disclosure is being madepursuant to the Care Everywhere program and may not contain all information available regarding this patient. Last updated 18.[facility] [email or web address] Allergies No known active allergies Medications * [...] Comments Blood Pressure 126/84 10/02/2018 4:27 PM ANALYTICAL LEAD Pulse 88 10/02/2018 4:27 PM ANALYTICAL LEAD Temperature 36.7 C (98 F) 10/02/2018 4:27 PM ANALYTICAL LEAD Respiratory Rate 16 10/02/2018 4:27 PM ANALYTICAL LEAD Oxygen Saturation 98% 10/02/2018 4:27 PM ANALYTICAL LEAD Inhaled Oxygen Concentration - - Weight 72.6 kg (160 lb) 10/02/2018 4:27 PM ANALYTICAL LEAD Height 160 cm (5' 3 ) 10/02/2018 4:27 PM ANALYTICAL LEAD Body Mass Index 28.34 10/02/2018 4:27 PM ANALYTICAL LEAD Plan of Treatment Health Maintenance Due Date [...] age to complete this topic Care Teams Coagulating Drying Supervisor Relationship Specialty Start Date End Date Angel Hernandez MD PCP - OBGYN 07/20/08
--- OUTSIDE RECORDS SUMMARY | 2024-09-14 03:41 | XMS_ITS | Clinical Summary ---
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 Not on leonel e Obstetrics History Last Filed Vital Signs Vital Sign Reading Time Taken Comments Blood Pressure 136/86 06/28/2023 2:10 PM HOISTING LABORER Pulse 94 06/28/2023 2:10 PM HOISTING LABORER Temperature 37 C (98.6 F) 06/28/2023 2:10 PM HOISTING LABORER Respiratory Rate 18 06/28/2023 2:10 PM HOISTING LABORER Oxygen Saturation 98% 06/28/2023 2:10 PM HOISTING LABORER Inhaled Oxygen Concentration - - Weight 79.4 kg (175 lb) 06/28/2023 2:10 PM HOISTING LABORER Height 160 cm (5' 3 ) 06/28/2023 2:10 PM HOISTING LABORER Body Mass Index 31 06/28/2023 2:10 PM HOISTING LABORER Plan of Treatment Health Maintenance Due Date [...] patient's age to complete this topic Insurance [facility] Care Teams Wharf Tender Head Relationship Specialty Start Date End Date Marcia Helms NP [address] [facility] [address] [place] [address] PCP - General Internal Medicine 11/10/22
--- OUTSIDE RECORDS SUMMARY | 2024-09-14 03:41 | XMS_ITS | Referral Summary ---
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 Not on leonel e Last Filed Vital Signs Vital Sign Reading Time Taken Comments Blood Pressure 136/86 06/28/2023 2:10 PM NUTRITION COUNSELOR Pulse 94 06/28/2023 2:10 PM NUTRITION COUNSELOR Temperature 37 C (98.6 F) 06/28/2023 2:10 PM NUTRITION COUNSELOR Respiratory Rate 18 06/28/2023 2:10 PM NUTRITION COUNSELOR Oxygen Saturation 98% 06/28/2023 2:10 PM NUTRITION COUNSELOR Inhaled Oxygen Concentration - - Weight 79.4 kg (175 lb) 06/28/2023 2:10 PM NUTRITION COUNSELOR Height 160 cm (5' 3 ) 06/28/2023 2:10 PM NUTRITION COUNSELOR Body Mass Index 31 06/28/2023 2:10 PM NUTRITION COUNSELOR Plan of Treatment Not on file Insurance [facility] CHO[facility] PL[facility] HMO/PPO Address: [address] [address] [place] [address] [facility] CHOICE PLUS [facility] HMO/PPO Address: [address] [address] [place] [address] Care Teams Welder Fabricator Relationship Specialty Start Date End Date Marcia Helms NP [address] [facility] [address] [place] [address] PCP - General Internal Medicine 11/10/22
[2024-09-14] MEDS: SODIUM CHLORIDE 0.9% IV 1,000 ML 999 ML IV CONT (04:20)
[2024-09-14] MEDS: HYDROmorphone HCL INJ (*CRX) 1 MG/ML SYR IV PUSH ×2 (04:21→05:02)
[2024-09-14] MEDS: ONDANSETRON INJ 4 MG/2 ML VIAL IV PUSH (04:21)
[2024-09-14 04:26] LABS: Basophils Percent Auto 0.4 % (0.2-1.2); Eosinophils Absolute Auto 0.1 K/mm3 (0-0.3); Eosinophils Percent Auto 0.5 % (0-4.4); Hematocrit 37.5 % (37.0-47.0); Immature Granulocyte Absolute 0.02 K/mm3 (0.00-0.031); Immature Granulocyte Percent A 0.2 % (0-0.5); Lymphocytes Absolute Auto 2.28 K/mm3 (0.9-3.2); Lymphocytes Percent Auto 24.8 % (18.3-44.2); Mean Corpuscular Hemoglobin 27.2 pg (26-34); Mean Platelet Volume 10.1 fl (7.4-10.4); Monocytes Absolute Auto 0.6 K/mm3 (0.1-0.6); Monocytes Percent Auto 6.1 % (2.6-8.5); Neutrophils Absolute Auto 6.2 K/mm3 (1.3-6.7); Platelet Count Result 284 k/mm3 (150-375); Red Blood Count 4.41 M/mm3 (4.2-5.4); White Blood Count 9.2 K/mm3 (4.5-10.0)
[2024-09-14 04:37] LABS: Alanine Aminotransferase 21 U/L (6-35); Albumin Level 4.4 g/dL (3.5-5.1); Alkaline Phosphatase 96 U/L (38-126); Anion Gap 16 mmol/L (4-12); Aspartate Amino Transferase 21 U/L (14-36); Bilirubin,Total 0.3 mg/dL (0.2-1.3); Blood Urea Nitrogen 18 mg/dL (7-17); Calcium 9.1 mg/dL (8.4-10.2); Carbon Dioxide 21 mmol/L (22-30); Chloride 105 mmol/L (98-107); Estimated CRCL calculation 95 ml/min; Estimated Glomerular Filt Rate > 60; Glucose 143 mg/dL (65-110); Lipase 71 U/L (23-300); Potassium 3.4 mmol/L (3.4-5.0); Sodium 142 mmol/L (137-145)
--- NOTE | 2024-09-14 05:10 | PC.NURSE ---
This RN had pt attempt to give urine sample at this time. Pt was unsuccessful and states she was unable to go.
[2024-09-14 05:55] VITALS: BP 127/84; PULSE 67; RESP 18; O2SAT 100
[2024-09-14 06:22] LABS: Add Urine Microscopic? YES; Appearance Urine Turbid (Clear); Bacteria Urine 1+ /hpf; Bilirubin Urine Negative (Negative); Blood Urine 3+ (Negative); Color Urine Yellow (Yellow); Glucose Urine UA Negative (Negative); Ketones Urine 1+ mg/dL (Negative); Leukocyte Esterase Ur 1+ LEU/UL (Negative); Need Manual Microscopic Reviewed; Nitrate Urine Negative (Negative); Non Pathogenic Casts 0-2; Protein Urine 1+ mg/dL (Negative); RBC Urine >100 /hpf (0-2); Specific Grav Ur 1.019 (1.001-1.035); Squamous Epithelial Cell Urine Moderate /hpf (Few); WBC Urine 0-5 /hpf (0-3); pH Urine 5.5 (5.0-9.0)
--- NOTE | 2024-09-14 06:42 | ED_ITS ---
HPI - General Adult General Chief complaint: Abdominal Pain Stated complaint: abdominal/back pain Time Seen by Provider: 09/14/24 03:21 History of Present Illness HPI narrative: This is a 39-year-old female presenting with left flank pain. Symptoms started in the middle the night. Sharp pain in her left flank that radiates into her abdomen. No urinary symptoms. No fevers or chills. She has had some vomiting. Related Data Home Medications ?Medication ?Instructions ?Recorded ?Confirmed ?Last Taken ?Type ascorbic acid (vitamin C) 500 mg 500 mg PO DAILY 01/03/22 01/13/22 01/09/22 History tablet (Vitamin C) multivitamin 1 tablet PO DAILY 01/03/22 01/13/22 01/09/22 History zinc 50 mg tablet 50 mg PO DAILY 01/03/22 01/13/22 01/09/22 History lisinopril 10 mg tablet 10 mg PO DAILY 01/04/22 01/13/22 01/12/22 History Allergies Allergy/AdvReac Type Severity Reaction Status Date / Time No Known Allergies Allergy Verified 09/14/24 03:02 [facility] Past Medical History Medical History HTN (hypertension) Overweight (BMI 25.0-29.9) Gestational hypertension Gestational diabetes Surgical History Surgical History Previous section X 3 Family History Family History Mother Family history of thyroid disease Sibling Family history of thyroid disease Grandparent Family history of heart disease in male family member before age 55 Diabetes mellitus Social History Social History Smoking status: Never smoker Second hand tobacco smoke exposure: No Alcohol intake: never Substance use: never Substance use type: does not use Living arrangements: with family Gender identity (if verbalized by the patient): Female Spiritual care concerns: No Exam 2 Narrative: APPEARANCE: No apparent distress. Head: atraumatic. EYES: EOMI, NOSE: Atraumatic NECK: Trachea midline RESPIRATORY: No increased rate of breathing, CTAB CARDIOVASCULAR: RRR, no peripheral edema ABDOMINAL: Non-distended soft nontender no guarding rebound, no CVA tenderness MUSCULOSKELETAl: No obvious deformities NEURO: Alert. Moving 4/4 extremities SKIN:: Warm, dry. Normal color PSYCHIATRIC: Normal affect Back/Spine/Pelvis: Cervical Spine: collar present Course Vital Signs Vital signs: Vital Signs Temperature 97.9 F 09/14/24 02:54 Pulse Rate 58 L 09/14/24 02:54 Respiratory Rate 15 09/14/24 02:54 Blood Pressure 132/80 09/14/24 02:54 Pulse Oximetry 100 09/14/24 02:54 Oxygen Delivery Room Air 09/14/24 02:54 Temperature 97.9 F 09/14/24 02:54 Pulse Rate 67 09/14/24 05:55 Respiratory Rate 18 09/14/24 05:55 Blood Pressure 127/84 09/14/24 05:55 Pulse Oximetry 100 09/14/24 05:55 Oxygen Delivery Room Air 09/14/24 02:54 Medical Decision Making MDM Narrative Medical decision making narrative: -Course: 39-year-old female presenting with left-sided flank pain. Found to have a 3 mm stone. Pain was controlled in the ED. No signs of infection. Patient be discharged with appropriate meds in Urology follow-up. -DDX includes but is not limited to: Kidney stone, septic stone, muscle strain Vital Signs Vital Signs: Vital Signs Temperature 97.9 F 09/14/24 02:54 Pulse Rate 58 L 09/14/24 02:54 Respiratory Rate 15 09/14/24 02:54 Blood Pressure 132/80 09/14/24 02:54 Pulse Oximetry 100 09/14/24 02:54 Oxygen Delivery Room Air 09/14/24 02:54 Temperature 97.9 F 09/14/24 02:54 Pulse Rate 67 09/14/24 05:55 Respiratory Rate 18 09/14/24 05:55 Blood Pressure 127/84 09/14/24 05:55 Pulse Oximetry 100 09/14/24 05:55 Oxygen Delivery Room Air 09/14/24 02:54 Lab Data 09/14/24 04:22 09/14/24 04:22 Labs: Lab Results 09/14/24 09/14/24 Range/Units 04:22 06:03 WBC 9.2 (4.5-10.0) K/mm3 RBC 4.41 (4.2-5.4) M/mm3 Hgb 12.0 (12.0-15.0) g/dL Hct 37.5 (37.0-47.0) % MCV 85.0 (80-100) fl MCH 27.2 (26-34) pg MCHC 32.0 (32-36) g/dl RDW 14.0 (11.5-14.5) % Plt Count 284 (150-375) k/mm3 MPV 10.1 (7.4-10.4) fl Immature Gran % (Auto) 0.2 (0-0.5) % Neut % (Auto) 68.0 (45.5-73.1) % Lymph % (Auto) 24.8 (18.3-44.2) % [place] % (Auto) 6.1 (2.6-8.5) % Eos % (Auto) 0.5 (0-4.4) % Baso % (Auto) 0.4 (0.2-1.2) % Lymph # (Auto) 2.28 (0.9-3.2) K/mm3 [place] # (Auto) 0.6 (0.1-0.6) K/mm3 Eos # (Auto) 0.1 (0-0.3) K/mm3 Baso # (Auto) 0.0 (0.0-0.1) K/mm3 Abs Immat Gran (auto) 0.02 (0.00-0.031) K/mm3 Absolute Neuts (auto) 6.2 (1.3-6.7) K/mm3 Absolute Nucleated RBC 0.000 (0.0-0.012) K/mm3 Nucleated RBC % 0.0 (0.0-0.2) % Sodium 142 (137-145) mmol/L Potassium 3.4 (3.4-5.0) mmol/L Chloride 105 (98-107) mmol/L Carbon Dioxide 21 L (22-30) mmol/L Anion Gap 16 H (4-12) mmol/L BUN 18 H (7-17) mg/dL Creatinine 0.68 L (0.7-1.0) mg/dL Estim Creat Clear Calc 95 ml/min Estimated GFR > 60 (59 - ) Glucose 143 H (65-110) mg/dL Calcium 9.1 (8.4-10.2) mg/dL Total Bilirubin 0.3 (0.2-1.3) mg/dL AST 21 (14-36) U/L ALT 21 (6-35) U/L Alkaline Phosphatase 96 (38-126) U/L Total Protein 8.0 (6.3-8.2) g/dL Albumin 4.4 (3.5-5.1) g/dL Lipase 71 (23-300) U/L Urine Color Yellow (Yellow) Urine Appearance Turbid H (Clear) Urine pH 5.5 (5.0-9.0) Ur Specific [place] 1.019 (1.001-1.035) Urine Protein 1+ H (Negative) mg/dL Urine Glucose (UA) Negative (Negative) mg/dL Urine Ketones 1+ H (Negative) mg/dL Ur Blood (Man) 3+ H (Negative) Urine Nitrate Negative (Negative) Urine Bilirubin Negative (Negative) Urine Urobilinogen 1.0 (<2.0) mg/dL Add Ur Microanalysis Reviewed Leukocyte Esterase Rfl 1+ H (Negative) SABINO/UL Urine RBC >100 H (0-2) /hpf Urine WBC 0-5 (0-3) /hpf Ur Squamous Epith Cells Moderate (Few) /hpf Urine Bacteria 1+ H /hpf Urine Casts 0-2 Discharge Plan Discharge Clinical Impression: Kidney stone Patient Disposition: Home, Self-Care Condition: Stable Instructions: Antibiotic Form, Kidney Stones (ED) Additional Instructions: You were seen in the emergency department for a kidney stone. Please use Motrin/Tylenol for pain. Use oxycodone for breakthrough pain. Use Zofran for nausea. Take Flomax to help pass the stone. Please follow-up with your Urologist for further management. Please return if you develop severe pain, fevers or intractable nausea and vomiting. Patient Language: Afghan Prescriptions: New ibuprofen 800 mg tablet 800 mg PO TID PRN (Reason: pain) 7 Days Qty: 21 0RF acetaminophen 500 mg tablet 1,000 mg PO TID PRN (Reason: nadja) 7 Days Qty: 42 0RF tamsulosin [Flomax] 0.4 mg capsule 0.4 mg PO DAILY Qty: 30 0RF ondansetron 4 mg tablet,disintegrating 4 mg PO Q8H PRN (Reason: nausea and vomiting) Qty: 30 0RF oxycodone 5 mg tablet 5 mg PO Q4H PRN (Reason: pain) Qty: 14 0RF No Action multivitamin Tablet 1 tablet PO DAILY ascorbic acid (vitamin C) [Vitamin C] 500 mg Tablet 500 mg PO DAILY zinc 50 mg Tablet 50 mg PO DAILY lisinopril 10 mg Tablet 10 mg PO DAILY hydrocodone-acetaminophen 5-325 mg tablet 1 tablet PO Q6H PRN (Reason: pain) Qty: 20 0RF Follow-up/Referrals: PHYSICIAN,LICENSED OCCUPATIONAL THERAPY ASSISTANT [Primary Care Provider] - Fabiano Chin MD [Physician] - 1 Week (Kidney stone)
[2024-09-14] MEDS: ACETAMINOPHEN 500 MG TABLET 1000 MG PO (07:03)
[2024-09-14] MEDS: KETOROLAC 15 MG/ML VIAL (*BKC) IV PUSH (07:04)
[2024-09-14 07:29] VITALS: BP 129/81; PULSE 85; RESP 20; O2SAT 97
--- NOTE | 2024-09-15 08:34 | P.HP_ITS ---
H&P: HPI History of Present Illness Date/Time: 09/15/24 08:34 Chief Complaint: Ureteral stone Narrative: she has a known history of stone disease. She is passed stones in the past. She has small bilateral renal stones which were being followed. She presented to the ER yesterday with a symptomatic left ureteral stone. CT scan shows a 3-4 mm left proximal ureteral stone. There was no signs of infection. She was not tolerating outpatient management and request a procedure to rid herself of the stone Review of Systems Review of Systems: All systems reviewed & are unremarkable except as noted in HPI and below PMFSH Past Medical History Medical History HTN (hypertension) Overweight (BMI 25.0-29.9) Gestational hypertension Gestational diabetes Surgical History Surgical History Previous section X 3 Family History Family History Mother Family history of thyroid disease Sibling Family history of thyroid disease Grandparent Family history of heart disease in male family member before age 55 Diabetes mellitus Social History Social History Smoking status: Never smoker Second hand tobacco smoke exposure: No Alcohol intake: never Substance use: never Substance use type: does not use Living arrangements: with family Gender identity (if verbalized by the patient): Female Spiritual care concerns: No Meds Home Medications and Allergies Home Medications ?Medication ?Instructions ?Recorded ?Confirmed ?Type ascorbic acid (vitamin C) 500 mg 500 mg PO DAILY 01/03/22 01/13/22 History tablet (Vitamin C) multivitamin 1 tablet PO DAILY 01/03/22 01/13/22 History zinc 50 mg tablet 50 mg PO DAILY 01/03/22 01/13/22 History lisinopril 10 mg tablet 10 mg PO DAILY 01/04/22 01/13/22 History hydrocodone 5 mg-acetaminophen 325 1 tablet PO Q6H PRN pain #20 tabs 01/13/22 R x mg tablet acetaminophen 500 mg tablet 1,000 mg (2 x 500 mg) PO TID PRN 09/14/24 Rx nadja 7 days #42 tabs ibuprofen 800 mg tablet 800 mg PO TID PRN pain 7 days #21 09/14/24 Rx tabs ondansetron 4 mg disintegrating 4 mg PO Q8H PRN nausea and 09/14/24 Rx tablet vomiting #30 tabs oxycodone 5 mg tablet 5 mg PO Q4H PRN pain #14 tabs 09/14/24 Rx tamsulosin 0.4 mg capsule (Flomax) 0.4 mg PO DAILY #30 caps 09/14/24 Rx Allergies Allergy/AdvReac Type Severity Reaction Status Date / Time No Known Allergies Allergy Verified 09/14/24 03:02 Exam Narrative: she is uncomfortable Const: General: cooperative and healthy appearing Nutritional Appearance: average body habitus HENMT: Head: normal to inspection Eyes: General: appearance normal, both eyes and all related structures Neck: Neck: normal visual inspection Resp: Effort & Inspection: normal respiratory effort and able to speak in complete sentences GI: Inspection: normal to inspection Skin: Lesions: no lesions Neuro: General: oriented to person, oriented to place and oriented to time Extrem: General: normal to inspection Psych: Appearance: grossly normal Assessment and Plan Assessment and plan (1) Ureteral stone: Code(s): N20.1 - Calculus of ureter Status: Acute Assessment and Plan: plan for cystoscopy, left retrograde pyelogram, left ureteroscopy, stone extraction, stent placement. She understands risks of bleeding, infection, inability remove the stone. Possibility only place a stent. She agrees to proceed
--- NOTE | 2024-09-15 08:37 | WPDHPUPDATE1 ---
History and Physical Update Update Date/Time: 09/15/24 08:37 History and Physical has been reviewed, including an updated exam of the patient. There are NO changes in the patient's condition. Risks, benefits, and alternatives have been discussed and questions answered. Patient agrees to proceed with procedure.
== END 2024-09-14 07:30 | disposition home or self-care (01) ==
PROVIDERS: Emergency Provider Emergency Medicine
DX: N13.2 Hydronephrosis with renal and ureteral calculous obstruction (principal); I10 Essential (primary) hypertension; E66.3 Overweight; Z68.31 Body mass index [BMI] 31.0-31.9, adult; Z79.899 Other long term (current) drug therapy; D25.9 Leiomyoma of uterus, unspecified
CPT/HCPCS: 36415; 74176; 80053; 81001; 83690; 85025; 96361; 96374; 96375; 96376; 99284; A9270; J1171; J1885; J2405; J7030

== ENCOUNTER 2024-09-15 09:56 | Day surgery (SDC) | payer OTHER, SELFPAY ==
[2024-09-15] VITALS (10 sets, daily range): BP systolic 120–170; BP diastolic 72–93; PULSE 63–92; RESP 14–18; TEMP 36.1–36.8; O2SAT 96–100; BMI 30.7
--- NOTE | ~2024-09-15 | XR_ITS ---
EXAMINATION: XR retrograde pyelo w/stent LT DATE: 09/15/2024 15:45 LIBER[facility] ARTS [facility]AN INDICATION: LEFT FLANK PAIN . TECHNIQUE: 6 fluoroscopic images and one cine clip of the left abdomen and pelvis were obtained paulo rasmussen left vertebrae pyelography with stent placement, performed by Homero Farah MD. I was not pres ent during the procedure. Fluoroscopy exposure time was 50.7 seconds. Air Kerma 23.63 mGy. DAP 1.14 m Gym2. COMPARISON: CT abdomen pelvis 09/14/2024 FINDINGS/IMPRESSION: Fluoroscopic documentation of left retrograde pyelography with stent placement. Please refer to the o perative note for complete procedural details . Reviewed, dictated and finalized at location K. RAL ARTS DEAN
--- NOTE | 2024-09-15 08:37 | HP_ITS ---
This report was moved to the correct visit on 09/16/2024. The original report was signed by Homero Farah MD on 09/15/24836. History and Physical Update Update Date/Time: 09/15/24 08:37 History and Physical has been reviewed, including an updated exam of the patient. There are NO changes in the patient's condition. Risks, benefits, and alternatives have been discussed and questions answered. Patient agrees to proceed with procedure. Please be advised this is a medical document. It is intended for kyyu-ky-utig communication. It is written in medical language and may contain unfamiliar abbreviations or verbiage. Medical documents are intended to carry relevant information, facts as evident, and the clinical opinion of the practitioner at the time of the encounter. This report may have been done utilizing a voice recognition system. Attempts have been made to correct errors. However, there may be uncorrected grammatical, spelling, and recognition errors present. The file time of this note does not necessarily represent the time the patient was seen. Report Initialized date/time: Homero Farah MD 09/15/24836 Electronically signed by: Homero Farah MD 09/15/24836 [facility]
--- NOTE | 2024-09-15 08:37 | HP_ITS ---
This report was moved to the correct visit on 09/16/2024. The original report was signed by Homero Farah MD on 09/15/24 0837. H&P: HPI History of Present Illness Date/Time: 09/15/24 08:34 Chief Complaint: Ureteral stone Narrative: she has a known history of stone disease. She is passed stones in the past. She has small bilateral renal stones which were being followed. She presented to the ER yesterday with a symptomatic left ureteral stone. CT scan shows a 3-4 mm left proximal ureteral stone. There was no signs of infection. She was not tolerating outpatient management and request a procedure to rid herself of the stone Review of Systems Review of Systems: All systems reviewed & are unremarkable except as noted in HPI and below PMFSH Past Medical History Medical History HTN (hypertension) Overweight (BMI 25.0-29.9) Gestational hypertension Gestational diabetes Surgical History Surgical History Previous section X 3 Family History Family History Mother Family history of thyroid diseaseSibling Family history of thyroid diseaseGrandparent Family history of heart disease in male family member before age 55 Diabetes mellitus Social History Social History Smoking status: Never smoker Second hand tobacco smoke exposure: No Alcohol intake: never Substance use: never Substance use type: does not use Living arrangements: with family Gender identity (if verbalized by the patient): Female Spiritual care concerns: No Meds Home Medications and Allergies Home Medications ?Medication ?Instructions ?Recorded ?Confirmed ?Type ascorbic acid (vitamin C) 500 mg 500 mg PO DAILY 01/03/22 01/13/22 History tablet (Vitamin C) multivitamin 1 tablet PO DAILY 01/03/22 01/13/22 History zinc 50 mg tablet 50 mg PO DAILY 01/03/22 01/13/22 History lisinopril 10 mg tablet 10 mg PO DAILY 01/04/22 01/13/22 History hydrocodone 5 mg-acetaminophen 325 1 tablet PO Q6H PRN pain #20 tabs 01/13/22 Rx mg tablet acetaminophen 500 mg tablet 1,000 mg (2 x 500 mg) PO TID PRN 09/14/24 Rx nadja 7 days #42 tabs ibuprofen 800 mg tablet 800 mg PO TID PRN pain 7 days #21 09/14/24 Rx tabs ondansetron 4 mg disintegrating 4 mg PO Q8H PRN nausea and 09/14/24 Rx tablet vomiting #30 tabs oxycodone 5 mg tablet 5 mg PO Q4H PRN pain #14 tabs 09/14/24 Rx tamsulosin 0.4 mg capsule (Flomax) 0.4 mg PO DAILY #30 caps 09/14/24 Rx Allergies Allergy/AdvReac Type Severity Reaction Status Date / Time No Known Allergies Allergy Verified 09/14/24 03:02 Exam Narrative: she is uncomfortable Const: General: cooperative and healthy appearing Nutritional Appearance: average body habitus HENMT: Head: normal to inspection Eyes: General: appearance normal, both eyes and all related structures Neck: Neck: normal visual inspection Resp: Effort & Inspection: normal respiratory effort and able to speak in complete sentences GI: Inspection: normal to inspection Skin: Lesions: no lesions Neuro: General: oriented to person, oriented to place and oriented to time Extrem: General: normal to inspection Psych: Appearance: grossly normal Assessment and Plan Assessment and plan (1) Ureteral stone: Code(s): N20.1 - Calculus of ureter Status: Acute Assessment and Plan: plan for cystoscopy, left retrograde pyelogram, left ureteroscopy, stone extraction, stent placement. She understands risks of bleeding, infection, inability remove the stone. Possibility only place a stent. She agrees to proceed Please be advised this is a medical document. It is intended for wpxr-yf-tctb communication. It is written in medical language and may contain unfamiliar abbreviations or verbiage. Medical documents are intended to carry relevant information, facts as evident, and the clinical opinion of the practitioner at the time of the encounter. This report may have been done utilizing a voice recognition system. Attempts have been made to correct errors. However, there may be uncorrected grammatical, spelling, and recognition errors present. The file time of this note does not necessarily represent the time the patient was seen. Report Initialized date/time: Homero Farah MD 09/15/24836 Electronically signed by: Homero Farah MD 09/15/[address] [facility]
--- NOTE | 2024-09-15 09:20 | PC.NURSE ---
Report to the Outpatient Waiting Room, entrance under the green pavilion located off [facility], at time _2pm_ on date _[id number]_. Planned Procedure Time: _4pm_.? Time changes happen often and if your time is changed the preop area will call you the afternoon before. - You and your visitor will be asked to self-screen and do not enter if you have any COVID symptoms. Please call surgeon if you need to reschedule. - A mask is optional within the hospital at this time. Patients may have clear liquids (water, carbonated beverages, clear teas, apple juice) until 3 hours prior to surgery with a maximum of 20 ounces. - No food from midnight until time of surgery and no smoking, or chewing tobacco (or any form of nicotine). No chewing gum, candy or mints. Take only the following medications with a SIP of water on the morning of surgery: __Acetaminophen and or Oxycodone if needed.____ DO NOT STOP ANY OF YOUR OTHER PRESCRIPTION MEDICATIONS PRIOR TO SURGERY EXCEPT THE FOLLOWING Hold all vitamins and supplements for 3 days per anesthesiologist. Medications to discontinue per physician Date to take last dose Patient has taken no vitamins or Ibuprofen today. Please no make-up, nail welsh, hairspray, perfume, deodorant, or body powder the day of surgery.? No jewelry (including any body piercings) or valuables the day of surgery, leave them at home.? Please take a shower or bath the night before, or the morning of, surgery with an antibacterial soap.? Wear comfortable, loose fitting clothing.? - Jewelry must be removed prior to entering the operating room.? Rings and piercings that are not removed may be cut off. - The hospital will not accept responsibility for valuables.? - Please leave all valuables, including medications, at home the day of surgery. If you are going home after surgery, a licensed patient transportation driver must drive you home.? - NO public transportation without another adult if you receive anesthesia. - We recommend that an adult stay with you for 24 hours following discharge. - We also recommend that you do not drive, make important decision, drink alcoholic beverages, or take any drugs that were not prescribed by your health care provider for at least 24 hours after your discharge time. Follow any additional instructions given to you from your surgeon. Telephone instructions given to __[place]__and asked if any additional questions and then verbalized understanding. Patient advised to call surgeon office or pre surgery nurse liaison [phone] if any additional questions.
--- OUTSIDE RECORDS SUMMARY | 2024-09-15 12:46 | XMS_ITS | Clinical Summary ---
Author Organization [facility] Address [address] [place] [address] Care Team Providers Care Appliquer Name Role Phone Angel Hernandez MD Unavailable [phone] Source Comments [facility],non-owned Affiliates and Associated Physician Practices is amultiple site organization consisting of ambulatory clinics and hospital sitesin [place], [place] and [place]. This disclosure is being madepursuant to the Care Everywhere program and may not contain all information available regarding this patient. Last updated 18.[facility] Allergies No known active allergies Medications * [...] Comments Blood Pressure 126/84 10/02/2018 4:27 PM HOT PRESS OPERATOR Pulse 88 10/02/2018 4:27 PM HOT PRESS OPERATOR Temperature 36.7 C (98 F) 10/02/2018 4:27 PM HOT PRESS OPERATOR Respiratory Rate 16 10/02/2018 4:27 PM HOT PRESS OPERATOR Oxygen Saturation 98% 10/02/2018 4:27 PM HOT PRESS OPERATOR Inhaled Oxygen Concentration - - Weight 72.6 kg (160 lb) 10/02/2018 4:27 PM HOT PRESS OPERATOR Height 160 cm (5' 3 ) 10/02/2018 4:27 PM HOT PRESS OPERATOR Body Mass Index 28.34 10/02/2018 4:27 PM HOT PRESS OPERATOR Plan of Treatment Health Maintenance Due Date [...] age to complete this topic Care Teams Appliquer Relationship Specialty Start Date End Date Angel Hernandez MD PCP - OBGYN 07/20/08
--- OUTSIDE RECORDS SUMMARY | 2024-09-15 12:46 | XMS_ITS | Patient Health Summary ---
Author Organization [facility] Address [address] [place] [address] Care Team Providers Care Associate Director Qa Name Role Phone Angel Hernandez MD Unavailable [phone] Note from [facility],non-owned Affiliates and Associated Physician Practices is amultiple site organization consisting of ambulatory clinics and hospital sitesin [place], [place], [place] and [place]. This disclosure is being madepursuant to the Care Everywhere program and may not contain all information available regarding this patient. Last updated 18.[facility] Allergies No known active allergies Medications * [...] Comments Blood Pressure 126/84 10/02/2018 4:27 PM LAWN AND TREE SERVICE SPRAY SUPERVISOR Pulse 88 10/02/2018 4:27 PM LAWN AND TREE SERVICE SPRAY SUPERVISOR Temperature 36.7 C (98 F) 10/02/2018 4:27 PM LAWN AND TREE SERVICE SPRAY SUPERVISOR Respiratory Rate 16 10/02/2018 4:27 PM LAWN AND TREE SERVICE SPRAY SUPERVISOR Oxygen Saturation 98% 10/02/2018 4:27 PM LAWN AND TREE SERVICE SPRAY SUPERVISOR Inhaled Oxygen Concentration - - Weight 72.6 kg (160 lb) 10/02/2018 4:27 PM LAWN AND TREE SERVICE SPRAY SUPERVISOR Height 160 cm (5' 3 ) 10/02/2018 4:27 PM LAWN AND TREE SERVICE SPRAY SUPERVISOR Body Mass Index 28.34 10/02/2018 4:27 PM LAWN AND TREE SERVICE SPRAY SUPERVISOR Procedures * STREP A SCREEN - POINT OF CARE (AMB) STL(Performed 06/27/2017) Performed for Acute nasopharyngitis Results * STREP A SCREEN (06/27/2017) Strep A Rapid POCT Negative Negative Strep A Internal Control Present Lot # [id number] Expiration Date [id number] Throat ENTIRE THROAT (SURFACE REGION OF NECK) / Unknown 06/27/2017 Laz Hooks MEDICAL CLAIMS SPECIALIST-MILLED LUMBER GRADER LAB - POINT OF CARE ORDERABLES Care Teams Associate Director Qa Relationship Specialty Start Date End Date Angel Hernandez MD PCP - OBGYN 07/20/08
--- OUTSIDE RECORDS SUMMARY | 2024-09-15 12:46 | XMS_ITS | Referral Summary ---
Author Organization [facility] [employer] Address [address] [place] [address] Care Team Providers Care Solar Thermal Installer Name Role Phone Angel Hernandez MD Unavailable Source Comments [facility],non-owned Affiliates and Associated Physician Practices is amultiple site organization consisting of ambulatory clinics and hospital sitesin [place], [place], [place] and [place]. This disclosure is being madepursuant to the Care Everywhere program and may not contain all information available regarding this patient. Last updated 18.[facility] Allergies No known active allergies Medications * [...] Comments Blood Pressure 126/84 10/02/2018 4:27 PM CRUSHER PLANT OPERATOR Pulse 88 10/02/2018 4:27 PM CRUSHER PLANT OPERATOR Temperature 36.7 C (98 F) 10/02/2018 4:27 PM CRUSHER PLANT OPERATOR Respiratory Rate 16 10/02/2018 4:27 PM CRUSHER PLANT OPERATOR Oxygen Saturation 98% 10/02/2018 4:27 PM CRUSHER PLANT OPERATOR Inhaled Oxygen Concentration - - Weight 72.6 kg (160 lb) 10/02/2018 4:27 PM CRUSHER PLANT OPERATOR Height 160 cm (5' 3 ) 10/02/2018 4:27 PM CRUSHER PLANT OPERATOR Body Mass Index 28.34 10/02/2018 4:27 PM CRUSHER PLANT OPERATOR Plan of Treatment Not on file Care Teams Solar Thermal Installer Relationship Specialty Start Date End Date Angel Hernandez MD PCP - OBGYN 07/20/08
--- OUTSIDE RECORDS SUMMARY | 2024-09-15 12:46 | XMS_ITS | Referral Summary ---
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 on file Not on leonel e Last Filed Vital Signs Vital Sign Reading Time Taken Comments Blood Pressure 136/86 06/28/2023 2:10 PM BIKE DESIGNER Pulse 94 06/28/2023 2:10 PM BIKE DESIGNER Temperature 37 C (98.6 F) 06/28/2023 2:10 PM BIKE DESIGNER Respiratory Rate 18 06/28/2023 2:10 PM BIKE DESIGNER Oxygen Saturation 98% 06/28/2023 2:10 PM BIKE DESIGNER Inhaled Oxygen Concentration - - Weight 79.4 kg (175 lb) 06/28/2023 2:10 PM BIKE DESIGNER Height 160 cm (5' 3 ) 06/28/2023 2:10 PM BIKE DESIGNER Body Mass Index 31 06/28/2023 2:10 PM BIKE DESIGNER Plan of Treatment Not on file Insurance [facility] CHOICE [facility]US [facility]/PPO Address: [address] [address] [place] [address] [facility] H[facility]/PPO Address: [address] [address] [place] [address] Care Teams Patient Account Analyst Relationship Specialty Start Date End Date Marcia Helms NP [address] [facility] [address] [place] [address] PCP - General Internal Medicine 11/10/22
--- OUTSIDE RECORDS SUMMARY | 2024-09-15 12:46 | XMS_ITS | Clinical Summary ---
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 Not on leonel e Obstetrics History Last Filed Vital Signs Vital Sign Reading Time Taken Comments Blood Pressure 136/86 06/28/2023 2:10 PM INFECTION CONTROL MANAGER Pulse 94 06/28/2023 2:10 PM INFECTION CONTROL MANAGER Temperature 37 C (98.6 F) 06/28/2023 2:10 PM INFECTION CONTROL MANAGER Respiratory Rate 18 06/28/2023 2:10 PM INFECTION CONTROL MANAGER Oxygen Saturation 98% 06/28/2023 2:10 PM INFECTION CONTROL MANAGER Inhaled Oxygen Concentration - - Weight 79.4 kg (175 lb) 06/28/2023 2:10 PM INFECTION CONTROL MANAGER Height 160 cm (5' 3 ) 06/28/2023 2:10 PM INFECTION CONTROL MANAGER Body Mass Index 31 06/28/2023 2:10 PM INFECTION CONTROL MANAGER Plan of Treatment Health Maintenance Due Date [...] patient's age to complete this topic Insurance [facility] CHO[facility]US [facility] HMO/PPO Address: [address] [place], [place] [id number] [facility] CHOICE PLUS [facility] H[facility]/PPO Address: [address] [place], [place] [id number] Care Teams Heavy Coil Winder Relationship Specialty Start Date End Date Marcia Helms NP [address] [facility] [address] [place] [address] PCP - General Internal Medicine 11/10/22
--- NOTE | 2024-09-15 14:15 | ECG_ITS ---
Test Date: 2024-09-15 14:33:37 Measurements Intervals [place] Rate: 67 P: 39 CA: 149 QRS: 19 QRSD: 93 T: 17 QT: 407 QTc: 433 Interpretive Statements SINUS RHYTHM POSSIBLE LEFT ATRIAL ENLARGEMENT VOLTAGE CRITERIA FOR LVH INFERIOR INFARCT, AGE INDETERMINATE BASELINE ARTIFACT- II, III, AVF ABNORMAL ECG No previous ECG available for comparison Electronically Signed On 09-15-2024 14:42:51 SUPERVISOR ASSEMBLING by Dariel Dominguez D.O.
[2024-09-15 14:16] LABS: BEDSIDEPREGUCG Negative (Negative)
--- NOTE | 2024-09-15 14:43 | WPDANESEPPF ---
Anes - Initial Pre Proc Eval Procedure: Operation Date: 09/15/24 16:00 Proposed Procedures p Cystoscopy, Left Ureteroscopy, Possible Left Retrograde Pyelogram, Possible Left Stone Extraction, Possible Left Stent Placement, Possible Holmium Laser Procedure - Homero Farah MD Date/Time: 09/15/24 14:43 Surgeon: Homero Farah MD Pre Op Diagnosis: left kidney stone Patient Data Age: 39 Gender: F Height: 1.6 m Weight: 79.8 kg Last Vital Signs Temp 36.8 C 09/15/24 14:05 Pulse 76 09/15/24 14:05 Resp 18 09/15/24 14:05 BP 170/91 H 09/15/24 14:05 Pulse Ox 100 09/15/24 14:05 O2 Del Method Room Air 09/15/24 14:05 Allergies Allergy/AdvReac Type Severity Reaction Status Date / Time No Known Allergies Allergy Verified 09/15/24 14:12 Home Medications ?Medication ?Instructions ?Recorded ?Confirmed ?Type ascorbic acid (vitamin C) 500 mg 500 mg PO DAILY 01/03/22 09/15/24 History tablet (Vitamin C) multivitamin 1 tablet PO DAILY 01/03/22 09/15/24 History zinc 50 mg tablet 50 mg PO DAILY 01/03/22 09/15/24 History lisinopril 10 mg tablet 10 mg PO DAILY 01/04/22 09/15/24 History acetaminophen 500 mg tablet 1,000 mg (2 x 500 mg) PO TID PRN 09/14/24 09/15/24 Rx nadja 7 days #42 tabs ibuprofen 800 mg tablet 800 mg PO TID PRN pain 7 days #21 09/14/24 09/15/24 Rx tabs ondansetron 4 mg disintegrating 4 mg PO Q8H PRN nausea and 09/14/24 09/15/24 Rx tablet vomiting #30 tabs oxycodone 5 mg tablet 5 mg PO Q4H PRN pain #14 tabs 09/14/24 09/15/24 Rx tamsulosin 0.4 mg capsule (Flomax) 0.4 mg PO DAILY #30 caps 09/14/24 09/15/24 Rx Laboratory Tests 09/15/24 14:14 POC Urine HCG, Qual Negative (Negative) Patient hx anesthesia problems: none Family hx anesthesia problems: none Results Review: All pre-operative results and documents have been reviewed as part of the pre-operative evaluation. [facility], [facility] Past Medical History Medical History HTN (hypertension) Overweight (BMI 25.0-29.9) Gestational hypertension Gestational diabetes Surgical History Surgical History Previous section X 3 Family History Family History Mother Family history of thyroid disease Sibling Family history of thyroid disease Grandparent Family history of heart disease in male family member before age 55 Diabetes mellitus Social History Social History Smoking status: Never smoker Second hand tobacco smoke exposure: No Alcohol intake: never Substance use: never Substance use type: does not use Living arrangements: with family Gender identity (if verbalized by the patient): Female Spiritual care concerns: No Anes - Eval Final PreProcedure Day of Procedure 09/15/24 14:43 Patient weight: obese Heart: regular rate and rhythm Lungs: clear to auscultation Airway: Mallampati scale class II Neurological: alert and oriented Last oral intake: >/= 8 hours ASA classification: III Emergent: no Anesthetic plan: proceed Anesthesia type and monitoring: general LMA and standard monitoring Results Review: All pre-operative results and documents have been reviewed as part of the pre-operative evaluation. Informed Consent: The patient's anesthetic plan and its attendant risks and benefits were discussed with the patient/family/POA. Questions were solicited and answers provided to the satisfaction of the patient/family/POA.
[2024-09-15] MEDS: LACTATED RINGERS 1,000 ML 30 ML IV CONT (14:50)
[2024-09-15] MEDS: fentaNYL CITRATE INJ (*CRX) 100 MCG/2 ML VIAL 25 MCG IV PUSH ×2 (14:54→14:57)
[2024-09-15] MEDS: ceFAZolin 2 GM/D5W 50 ML 2 GM/50 ML BAG IVPB (15:37)
[2024-09-15] MEDS: LIDOCAINE 2% GEL UROJET 10 ML PKG MUCOUS MEM (15:48)
[2024-09-15] MEDS: KETOROLAC 15 MG/ML VIAL (*BKC) IV PUSH (16:13)
--- NOTE | 2024-09-15 16:26 | W.PM.PROC2 ---
Procedure Note - Detailed Date of Procedure 09/15/24 Pre-op Diagnosis Left ureteral stone Post-op Diagnosis Same Procedure Performed Cystoscopy, left retrograde pyelogram, left ureteroscopy, basket stone extraction, stent placement Surgeon Homero Farah MD Anesthesia General Indications This is a young woman with a left proximal ureteral stone measuring 3-4 mm. She is attempting a trial of conservative stone passage and has significant discomfort. She elected for procedure remove her stone. We plan on ureteroscopy. She understands risks of bleeding, infection, damage to the urinary tract, inability remove the stone. She agrees to proceed Findings Proximal ureteral stone was pushed back into the kidney. It was extracted intact Description of Procedure She is correctly identified. Informed consent obtained. She was from the operating room. She was given general anesthesia. She was placed in dorsal lithotomy position. She was prepped and draped sterile fashion. Time-out performed. Cystoscopy revealed a normal appearing bladder without tumors or abnormalities. Ureteral orifices are normal. I did a gentle retrograde pyelogram on the left. Filling defect was seen the proximal left ureter. No extravasation. Mild hydronephrosis. I placed a guidewire into the kidney. I dilated the ureteral orifice with the 810 dilator. I then performed flexible ureteroscopy. I got up to the side of the proximal ureter the stone was no longer there. I then entered the kidney. I did retrograde pyelogram to outline ureteral anatomy and renal pelvic anatomy. I inspected all calices. The stone was encountered in a mid pole calyx. I was able to basket the stone with a escape basket. I was able to extract the stone intact. I examined the ureter on the way down and there was no additional stones. There was minimal trauma to the ureter. Under fluoroscopy I placed a 4.8 variable length stent proximal coil apple kidney. Distal coil in the bladder. The bladder was drained. The string was left on the stent and secured to her thigh. She was awakened transferred to PACU in stable condition Estimated Blood Loss 0 Drains Yes (stent) Pathology Yes (stone) Complications No immediate complications Condition Stable
--- NOTE | 2024-09-15 16:34 | SUR.OPER ---
Specimen given to Columba
== END 2024-09-15 17:52 | disposition home or self-care (01) ==
PROVIDERS: Visit Provider Urology
PROC: (CPT 52352; principal; 2024-09-15 16:00)
DX: N20.1 Calculus of ureter (principal); E66.9 Obesity, unspecified; Z68.31 Body mass index [BMI] 31.0-31.9, adult
CPT/HCPCS: 52352; 52332; 74420; 82365; 88300; 93005; C1769; C2617; J0690; J1100; J1885; J2250; J2405; J2704; J3010; J7120

== ENCOUNTER 2024-09-17 06:14 | Emergency (ER) | payer OTHER, SELFPAY ==
--- NOTE | ~2024-09-17 | CT_ITS ---
Non-contrast CT scan of the Abdomen and Pelvis Clinical indication: Left flank pain, self removal of stent earlier today Technique: 2.5 mm axial scans were obtained through the abdomen and pelvis without intravenous or or al contrast. Dose reduction technique was used on this scan by utilizing automated exposure control a nd iterative reconstruction technique. The dose-length product (DLP) was 303.76 mGy-cm. COMPARISON: 09/14/2024 Findings: Images through the lung bases reveal no abnormalities. There is mild left hydroureteronephrosis. No radiopaque stones present. No stent or stent fragment pr esent. The liver, spleen, pancreas, gallbladder, and adrenals appear normal. There is no aortic aneurysm. There is no evidence of bowel obstruction. Images through the pelvis were performed. There is no evidence of ascites or lymphadenopathy. Urinary bladder collapsed, limiting evaluation. No pelvic mass seen. Impression: Mild left hydroureteronephrosis. No stones or stent/stent fragment present. Reviewed, dictated and finalized at [facility]. [employer] SALES ADVISOR Impression: Mild left hydroureteronephrosis. No stones or stent/stent fragment present.
--- OUTSIDE RECORDS SUMMARY | 2024-09-17 06:17 | XMS_ITS | Patient Health Summary ---
Author Organization [facility] [employer] Address [address] [place] [address] Care Team Providers Care Historic Preservationist Name Role Phone Angel Hernandez MD Unavailable [phone] Note from [facility],non-owned Affiliates and Associated Physician Practices is amultiple site organization consisting of ambulatory clinics and hospital sitesin [place], [place], [place] and [place]. This disclosure is being madepursuant to the Care Everywhere program and may not contain all information available regarding this patient. Last updated 18.[facility] Allergies No known active allergies Medications * [...] Comments Blood Pressure 126/84 10/02/2018 4:27 PM BRILLIANDEER LOPPER Pulse 88 10/02/2018 4:27 PM BRILLIANDEER LOPPER Temperature 36.7 C (98 F) 10/02/2018 4:27 PM BRILLIANDEER LOPPER Respiratory Rate 16 10/02/2018 4:27 PM BRILLIANDEER LOPPER Oxygen Saturation 98% 10/02/2018 4:27 PM BRILLIANDEER LOPPER Inhaled Oxygen Concentration - - Weight 72.6 kg (160 lb) 10/02/2018 4:27 PM BRILLIANDEER LOPPER Height 160 cm (5' 3 ) 10/02/2018 4:27 PM BRILLIANDEER LOPPER Body Mass Index 28.34 10/02/2018 4:27 PM BRILLIANDEER LOPPER Procedures * STREP A SCREEN - POINT OF CARE (AMB) STL(Performed 06/27/2017) Performed for Acute nasopharyngitis Results * STREP A SCREEN (06/27/2017) Strep A Rapid POCT Negative Negative Strep A Internal Control Present Lot # [id number] Expiration Date [id number] Throat ENTIRE THROAT (SURFACE REGION OF NECK) / Unknown 06/27/2017 Laz Hooks STUD SETTER-NETWORKING ADMINISTRATOR LAB - POINT OF CARE ORDERABLES Care Teams Historic Preservationist Relationship Specialty Start Date End Date Angel Hernandez MD PCP - OBGYN 07/20/08
--- OUTSIDE RECORDS SUMMARY | 2024-09-17 06:17 | XMS_ITS | Referral Summary ---
Author Organization [facility] [employer] Address [address] [place] [address] Care Team Providers Care Membership Sales Manager Name Role Phone Angel Hernandez MD Unavailable [phone] Source Comments [facility] [employer],non-owned Affiliates and Associated Physician Practices is amultiple site organization consisting of ambulatory clinics and hospital sitesin [place], [place], [place] and [place]. This disclosure is being madepursuant to the Care Everywhere program and may not contain all information available regarding this patient. Last updated 18.[facility] [employer] Allergies No known active allergies Medications * [...] Comments Blood Pressure 126/84 10/02/2018 4:27 PM ASSISTANT PROJECT ENGINEER Pulse 88 10/02/2018 4:27 PM ASSISTANT PROJECT ENGINEER Temperature 36.7 C (98 F) 10/02/2018 4:27 PM ASSISTANT PROJECT ENGINEER Respiratory Rate 16 10/02/2018 4:27 PM ASSISTANT PROJECT ENGINEER Oxygen Saturation 98% 10/02/2018 4:27 PM ASSISTANT PROJECT ENGINEER Inhaled Oxygen Concentration - - Weight 72.6 kg (160 lb) 10/02/2018 4:27 PM ASSISTANT PROJECT ENGINEER Height 160 cm (5' 3 ) 10/02/2018 4:27 PM ASSISTANT PROJECT ENGINEER Body Mass Index 28.34 10/02/2018 4:27 PM ASSISTANT PROJECT ENGINEER Plan of Treatment Not on file Care Teams Membership Sales Manager Relationship Specialty Start Date End Date Angel Hernandez MD PCP - OBGYN 07/20/08
--- OUTSIDE RECORDS SUMMARY | 2024-09-17 06:17 | XMS_ITS | Clinical Summary ---
Author Organization [facility] Address [address] [place] [address] Care Team Providers Care Automotive Quality Engineer Name Role Phone Angel Hernandez MD Unavailable [phone] Source Comments [facility],non-owned Affiliates and Associated Physician Practices is amultiple site organization consisting of ambulatory clinics and hospital sitesin [place], [place] and [place]. This disclosure is being madepursuant to the Care Everywhere program and may not contain all information available regarding this patient. Last updated 18.[facility] Allergies No known active allergies Medications * [...] Comments Blood Pressure 126/84 10/02/2018 4:27 PM SQL SSRS DEVELOPER Pulse 88 10/02/2018 4:27 PM SQL SSRS DEVELOPER Temperature 36.7 C (98 F) 10/02/2018 4:27 PM SQL SSRS DEVELOPER Respiratory Rate 16 10/02/2018 4:27 PM SQL SSRS DEVELOPER Oxygen Saturation 98% 10/02/2018 4:27 PM SQL SSRS DEVELOPER Inhaled Oxygen Concentration - - Weight 72.6 kg (160 lb) 10/02/2018 4:27 PM SQL SSRS DEVELOPER Height 160 cm (5' 3 ) 10/02/2018 4:27 PM SQL SSRS DEVELOPER Body Mass Index 28.34 10/02/2018 4:27 PM SQL SSRS DEVELOPER Plan of Treatment Health Maintenance Due Date [...] age to complete this topic Care Teams Automotive Quality Engineer Relationship Specialty Start Date End Date Angel Hernandez MD PCP - OBGYN 07/20/08
--- OUTSIDE RECORDS SUMMARY | 2024-09-17 06:17 | XMS_ITS | Clinical Summary ---
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 Not on leonel e Obstetrics History Last Filed Vital Signs Vital Sign Reading Time Taken Comments Blood Pressure 136/86 06/28/2023 2:10 PM MANAGER CONTRACT Pulse 94 06/28/2023 2:10 PM MANAGER CONTRACT Temperature 37 C (98.6 F) 06/28/2023 2:10 PM MANAGER CONTRACT Respiratory Rate 18 06/28/2023 2:10 PM MANAGER CONTRACT Oxygen Saturation 98% 06/28/2023 2:10 PM MANAGER CONTRACT Inhaled Oxygen Concentration - - Weight 79.4 kg (175 lb) 06/28/2023 2:10 PM MANAGER CONTRACT Height 160 cm (5' 3 ) 06/28/2023 2:10 PM MANAGER CONTRACT Body Mass Index 31 06/28/2023 2:10 PM MANAGER CONTRACT Plan of Treatment Health Maintenance Due Date [...] patient's age to complete this topic Insurance [facility] CHOICE PLUS [facility] CHOICE PLUS Care Teams Replenisher Relationship Specialty Start Date End Date Marcia Helms NP [address] [facility] [address] [place] [address] PCP - General Internal Medicine 11/10/22
--- OUTSIDE RECORDS SUMMARY | 2024-09-17 06:17 | XMS_ITS | Referral Summary ---
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 on leonel e Last Filed Vital Signs Vital Sign Reading Time Taken Comments Blood Pressure 136/86 06/28/2023 2:10 PM SPRAY MAKER Pulse 94 06/28/2023 2:10 PM SPRAY MAKER Temperature 37 C (98.6 F) 06/28/2023 2:10 PM SPRAY MAKER Respiratory Rate 18 06/28/2023 2:10 PM SPRAY MAKER Oxygen Saturation 98% 06/28/2023 2:10 PM SPRAY MAKER Inhaled Oxygen Concentration - - Weight 79.4 kg (175 lb) 06/28/2023 2:10 PM SPRAY MAKER Height 160 cm (5' 3 ) 06/28/2023 2:10 PM SPRAY MAKER Body Mass Index 31 06/28/2023 2:10 PM SPRAY MAKER Plan of Treatment Not on file Insurance [facility] CHOICE PLUS [facility] CHOICE PLUS Care Teams Forensic Pathologist Relationship Specialty Start Date End Date Marcia Helms NP [address] [place] [address] PCP - General Internal Medicine 11/10/22
[2024-09-17 06:19] VITALS: TEMP 37.1
[2024-09-17 07:15] VITALS: BP 172/97; PULSE 63; RESP 20; O2SAT 98
[2024-09-17] MEDS: KETOROLAC 30 MG/ML VIAL (*BKC) IV PUSH (07:26)
[2024-09-17] MEDS: ONDANSETRON INJ 4 MG/2 ML VIAL IV PUSH (07:26)
[2024-09-17] MEDS: SODIUM CHLORIDE 0.9% IV 1,000 ML 999 ML IV CONT (07:26)
--- OUTSIDE RECORDS SUMMARY | 2024-09-17 07:44 | XMS_ITS | Referral Summary ---
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 Not on file Not on leonel e Last Filed Vital Signs Vital Sign Reading Time Taken Comments Blood Pressure 136/86 06/28/2023 2:10 PM PARAMEDIC RN Pulse 94 06/28/2023 2:10 PM PARAMEDIC RN Temperature 37 C (98.6 F) 06/28/2023 2:10 PM PARAMEDIC RN Respiratory Rate 18 06/28/2023 2:10 PM PARAMEDIC RN Oxygen Saturation 98% 06/28/2023 2:10 PM PARAMEDIC RN Inhaled Oxygen Concentration - - Weight 79.4 kg (175 lb) 06/28/2023 2:10 PM PARAMEDIC RN Height 160 cm (5' 3 ) 06/28/2023 2:10 PM PARAMEDIC RN Body Mass Index 31 06/28/2023 2:10 PM PARAMEDIC RN Plan of Treatment Not on file Insurance [facility] CHOICE PLUS [facility] CHOICE PLUS Care Teams Trading Assistant Relationship Specialty Start Date End Date Marcia Helms NP [address] [facility] [address] [place] [address] PCP - General Internal Medicine 11/10/22
--- OUTSIDE RECORDS SUMMARY | 2024-09-17 07:44 | XMS_ITS | Referral Summary ---
Author Organization [facility] Address [address] [place] [address] Care Team Providers Care Life Skills Worker Name Role Phone Angel Hernandez MD Unavailable [phone] Source Comments [facility],non-owned Affiliates and Associated Physician Practices is amultiple site organization consisting of ambulatory clinics and hospital sitesin [place], [place], [place] and [place]. This disclosure is being madepursuant to the Care Everywhere program and may not contain all information available regarding this patient. Last updated 18.[facility] Allergies No known active allergies Medications * [...] Comments Blood Pressure 126/84 10/02/2018 4:27 PM CLINICAL DATA COORDINATOR Pulse 88 10/02/2018 4:27 PM CLINICAL DATA COORDINATOR Temperature 36.7 C (98 F) 10/02/2018 4:27 PM CLINICAL DATA COORDINATOR Respiratory Rate 16 10/02/2018 4:27 PM CLINICAL DATA COORDINATOR Oxygen Saturation 98% 10/02/2018 4:27 PM CLINICAL DATA COORDINATOR Inhaled Oxygen Concentration - - Weight 72.6 kg (160 lb) 10/02/2018 4:27 PM CLINICAL DATA COORDINATOR Height 160 cm (5' 3 ) 10/02/2018 4:27 PM CLINICAL DATA COORDINATOR Body Mass Index 28.34 10/02/2018 4:27 PM CLINICAL DATA COORDINATOR Plan of Treatment Not on file Care Teams Life Skills Worker Relationship Specialty Start Date End Date Angel Hernandez MD PCP - OBGYN 07/20/08
--- OUTSIDE RECORDS SUMMARY | 2024-09-17 07:44 | XMS_ITS | Patient Health Summary ---
Author Organization [facility] Address [address] [place] [address] Care Team Providers Care Motorman/Woman Name Role Phone Angel Hernandez MD Unavailable [phone] Note from [facility] [place],non-owned Affiliates and Associated Physician Practices is amultiple site organization consisting of ambulatory clinics and hospital sitesin [place], [place], [place] and [place]. This disclosure is being madepursuant to the Care Everywhere program and may not contain all information available regarding this patient. Last updated 18.[facility] Allergies No known active allergies Medications * [...] Comments Blood Pressure 126/84 10/02/2018 4:27 PM LOGISTICIAN Pulse 88 10/02/2018 4:27 PM LOGISTICIAN Temperature 36.7 C (98 F) 10/02/2018 4:27 PM LOGISTICIAN Respiratory Rate 16 10/02/2018 4:27 PM LOGISTICIAN Oxygen Saturation 98% 10/02/2018 4:27 PM LOGISTICIAN Inhaled Oxygen Concentration - - Weight 72.6 kg (160 lb) 10/02/2018 4:27 PM LOGISTICIAN Height 160 cm (5' 3 ) 10/02/2018 4:27 PM LOGISTICIAN Body Mass Index 28.34 10/02/2018 4:27 PM LOGISTICIAN Procedures * STREP A SCREEN - POINT OF CARE (AMB) STL(Performed 06/27/2017) Performed for Acute nasopharyngitis Results * STREP A SCREEN (06/27/2017) Strep A Rapid POCT Negative Negative Strep A Internal Control Present Lot # [id number] Expiration Date [id number] Throat ENTIRE THROAT (SURFACE REGION OF NECK) / Unknown 06/27/2017 Laz Hooks PHOTOGRAPHY EDITOR-DIRECTOR OF [employer] [facility] - POINT OF CARE ORDERABLES Care Teams Motorman/Woman Relationship Specialty Start Date End Date Angel Hernandez MD PCP - OBGYN 07/20/08
--- OUTSIDE RECORDS SUMMARY | 2024-09-17 07:44 | XMS_ITS | Clinical Summary ---
Author Organization [facility] Address [address] [place] [address] Care Team Providers Care Rubber Down Name Role Phone Angel Hernandez MD Unavailable [phone] Source Comments [facility],non-owned Affiliates and Associated Physician Practices is amultiple site organization consisting of ambulatory clinics and hospital sitesin [place], [place], [place] and [place]. This disclosure is being madepursuant to the Care Everywhere program and may not contain all information available regarding this patient. Last updated 18.[facility] Allergies No known active allergies Medications * [...] Comments Blood Pressure 126/84 10/02/2018 4:27 PM DISABILITY COORDINATOR Pulse 88 10/02/2018 4:27 PM DISABILITY COORDINATOR Temperature 36.7 C (98 F) 10/02/2018 4:27 PM DISABILITY COORDINATOR Respiratory Rate 16 10/02/2018 4:27 PM DISABILITY COORDINATOR Oxygen Saturation 98% 10/02/2018 4:27 PM DISABILITY COORDINATOR Inhaled Oxygen Concentration - - Weight 72.6 kg (160 lb) 10/02/2018 4:27 PM DISABILITY COORDINATOR Height 160 cm (5' 3 ) 10/02/2018 4:27 PM DISABILITY COORDINATOR Body Mass Index 28.34 10/02/2018 4:27 PM DISABILITY COORDINATOR Plan of Treatment Health Maintenance Due Date [...] age to complete this topic Care Teams Rubber Down Relationship Specialty Start Date End Date Angel Hernandez MD PCP - OBGYN 07/20/08
--- OUTSIDE RECORDS SUMMARY | 2024-09-17 07:44 | XMS_ITS | Clinical Summary ---
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 Not on file Not on leonel e Obstetrics History Last Filed Vital Signs Vital Sign Reading Time Taken Comments Blood Pressure 136/86 06/28/2023 2:10 PM [employer] Pulse 94 06/28/2023 2:10 PM [employer] Temperature 37 C (98.6 F) 06/28/2023 2:10 PM [employer] Respiratory Rate 18 06/28/2023 2:10 PM [employer] Oxygen Saturation 98% 06/28/2023 2:10 PM [employer] Inhaled Oxygen Concentration - - Weight 79.4 kg (175 lb) 06/28/2023 2:10 PM [employer] Height 160 cm (5' 3 ) 06/28/2023 2:10 PM [employer] Body Mass Index 31 06/28/2023 2:10 PM [employer] Plan of Treatment Health Maintenance Due Date [...] patient's age to complete this topic Insurance [place] [employer] [place] [employer] Care Teams Medical Videographer Relationship Specialty Start Date End Date Marcia Helms NP [address] [facility] [address] [place] [address] PCP - General Internal Medicine 11/10/22
--- NOTE | 2024-09-17 07:55 | ED_ITS ---
HPI - General Adult General Chief complaint: Urogenital-Female Stated complaint: Stent placed; pain Time Seen by Provider: 09/17/24 07:04 History of Present Illness HPI narrative: Patient is a 39-year-old female who presents ER with left-sided flank pain. She removed a left-sided ureteral stent this morning. 20 minutes later she started having sharp left-sided flank pain with nausea vomiting. No fevers or chills or sweats. No urinary frequency urgency or dysuria. This feels like kidney stones in the past. Related Data Home Medications ?Medication ?Instructions ?Recorded ?Confirmed ?Last Taken ?Type ascorbic acid (vitamin C) 500 mg 500 mg PO DAILY 01/03/22 09/15/24 01/09/22 History tablet (Vitamin C) multivitamin 1 tablet PO DAILY 01/03/22 09/15/24 01/09/22 History zinc 50 mg tablet 50 mg PO DAILY 01/03/22 09/15/24 01/09/22 History lisinopril 10 mg tablet 10 mg PO DAILY 01/04/22 09/15/24 01/12/22 History Allergies Allergy/AdvReac Type Severity Reaction Status Date / Time No Known Allergies Allergy Verified 09/15/24 14:12 PMFSH Past Medical History Medical History HTN (hypertension) Overweight (BMI 25.0-29.9) Gestational hypertension Gestational diabetes Surgical History Surgical History Previous section X 3 Family History Family History Mother Family history of thyroid disease Sibling Family history of thyroid disease Grandparent Family history of heart disease in male family member before age 55 Diabetes mellitus Social History Social History Smoking status: Never smoker Second hand tobacco smoke exposure: No Alcohol intake: never Substance use: never Substance use type: does not use Living arrangements: with family Gender identity (if verbalized by the patient): Female Spiritual care concerns: No Exam 2 Narrative: GENERAL: Uncomfortable-appearing, well-nourished, and in no acute distress. HEAD: Normocephalic, atraumatic. ENT: Mucous membranes moist. CHEST: Clear to auscultation. No respiratory distress. HEART: Regular rate and rhythm. Normal peripheral pulses. ABDOMEN: Soft, nontender, nondistended, no CVA tenderness. EXTREMITIES: Normal range of motion. No edema. SKIN: Warm, dry, no rash. NEURO: Alert and oriented x3. PSYCH: Normal mood and affect. Course Course Emergency Course: Pain improved with Toradol. Suspect pain is related to stent removal in ureter spasm. No bacteria in urine but positive nitrate and leukocyte esterase with elevated white blood cells and red blood cells. Will start on cefuroxime. She can follow up with Urology. Dr. Chin has already sent toradol to the pharmacy. Vital Signs Vital signs: Vital Signs Temperature 98.7 F 09/17/24 06:19 Temperature 98.7 F 09/17/24 06:19 Pulse Rate 65 09/17/24 10:30 Respiratory Rate 18 09/17/24 10:30 Blood Pressure 128/74 09/17/24 10:30 Pulse Oximetry 95 09/17/24 10:30 Oxygen Delivery Room Air 09/17/24 07:15 Medical Decision Making Vital Signs Vital Signs: Vital Signs Temperature 98.7 F 09/17/24 06:19 Temperature 98.7 F 09/17/24 06:19 Pulse Rate 65 09/17/24 10:30 Respiratory Rate 18 09/17/24 10:30 Blood Pressure 128/74 09/17/24 10:30 Pulse Oximetry 95 09/17/24 10:30 Oxygen Delivery Room Air 09/17/24 07:15 Lab Data 09/17/24 07:44 09/17/24 07:44 Labs: Lab Results 09/17/24 09/17/24 Range/Units 07:44 09:34 WBC 15.5 H (4.5-10.0) K/mm3 RBC 4.22 (4.2-5.4) M/mm3 Hgb 11.5 L (12.0-15.0) g/dL Hct 36.1 L (37.0-47.0) % MCV 85.5 (80-100) fl MCH 27.3 (26-34) pg MCHC 31.9 L (32-36) g/dl RDW 13.8 (11.5-14.5) % Plt Count 304 (150-375) k/mm3 MPV 10.1 (7.4-10.4) fl Immature Gran % (Auto) 0.5 (0-0.5) % Neut % (Auto) 79.8 H (45.5-73.1) % Lymph % (Auto) 14.5 L (18.3-44.2) % [place] % (Auto) 4.8 (2.6-8.5) % Eos % (Auto) 0.1 (0-4.4) % Baso % (Auto) 0.3 (0.2-1.2) % Lymph # (Auto) 2.24 (0.9-3.2) K/mm3 [place] # (Auto) 0.7 H (0.1-0.6) K/mm3 Eos # (Auto) 0.0 (0-0.3) K/mm3 Baso # (Auto) 0.0 (0.0-0.1) K/mm3 Abs Immat Gran (auto) 0.08 H (0.00-0.031) K/mm3 Absolute Neuts (auto) 12.4 H (1.3-6.7) K/mm3 Absolute Nucleated RBC 0.000 (0.0-0.012) K/mm3 Nucleated RBC % 0.0 (0.0-0.2) % PT 13.6 (11.1-14.7) Seconds INR 1.0 APTT 26.1 (22.3-36.8) Seconds Sodium 143 (137-145) mmol/L Potassium 3.3 L (3.4-5.0) mmol/L Chloride 107 (98-107) mmol/L Carbon Dioxide 24 (22-30) mmol/L Anion Gap 12 (4-12) mmol/L BUN 20 H (7-17) mg/dL Creatinine 0.73 (0.7-1.0) mg/dL Estim Creat Clear Calc 91 ml/min Estimated GFR > 60 (59 - ) Glucose 109 (65-110) mg/dL Calcium 9.0 (8.4-10.2) mg/dL Total Bilirubin 0.4 (0.2-1.3) mg/dL AST 23 (14-36) U/L ALT 16 (6-35) U/L Alkaline Phosphatase 92 (38-126) U/L Total Protein 8.0 (6.3-8.2) g/dL Albumin 4.4 (3.5-5.1) g/dL Urine Color Brown H (Yellow) Urine Appearance Turbid H (Clear) Urine pH 5.5 (5.0-9.0) Ur Specific [place] 1.025 (1.001-1.035) Urine Protein 3+ H (Negative) mg/dL Urine Glucose (UA) Negative (Negative) mg/dL Urine Ketones 2+ H (Negative) mg/dL Ur Blood (Man) 3+ H (Negative) Urine Nitrate Positive H (Negative) Urine Bilirubin 1+ H (Negative) Urine Urobilinogen 1.0 (<2.0) mg/dL Leukocyte Esterase Rfl 2+ H (Negative) SABINO/UL Urine RBC >100 H (0-2) /hpf Urine WBC 51-100 H (0-3) /hpf Ur Squamous Epith Cells Occasional (Few) /hpf Urine Bacteria None seen /hpf Urine Casts 0-2 Imaging Data Radiologist's impression: ITS Impressions Abdomen/Pelvis CT 09/17/24 07:42 Impression: Mild left hydroureteronephrosis. No stones or stent/stent fragment present. Discharge Plan Discharge Clinical Impression: Acute flank pain, UTI (urinary tract infection) Patient Disposition: Home, Self-Care Condition: Stable Instructions: Antibiotic Form, Acute Urinary Retention in Women (ED) Additional Instructions: You should return to the emergency department if you develop severe nausea and vomiting and are unable to keep liquids down, if you develop severe back/flank or stomach pain, or if your symptoms are not clearly improving at home. Patient Language: Uzbek Prescriptions: New cefuroxime axetil 500 mg tablet 500 mg PO BID Qty: 14 0RF No Action ibuprofen 800 mg tablet 800 mg PO TID PRN (Reason: pain) 7 Days Qty: 21 0RF acetaminophen 500 mg tablet 1,000 mg PO TID PRN (Reason: nadja) 7 Days Qty: 42 0RF ondansetron 4 mg tablet,disintegrating 4 mg PO Q8H PRN (Reason: nausea and vomiting) Qty: 30 0RF oxycodone 5 mg tablet 5 mg PO Q4H PRN (Reason: pain) Qty: 14 0RF phenazopyridine [Pyridium] 200 mg tablet 200 mg PO TID PRN (Reason: pain) Qty: 20 0RF oxybutynin chloride 5 mg tablet 5 mg PO TID Qty: 20 0RF oxycodone 5 mg tablet 5 mg PO Q6H PRN (Reason: pain) Qty: 10 0RF multivitamin Tablet 1 tablet PO DAILY ascorbic acid (vitamin C) [Vitamin C] 500 mg Tablet 500 mg PO DAILY zinc 50 mg Tablet 50 mg PO DAILY lisinopril 10 mg Tablet 10 mg PO DAILY Follow-up/Referrals: Farhat Campos MD [Physician] - 1 Week UNKNOWN,DOCTOR [Primary Care Provider] -
[2024-09-17 08:01] LABS: Basophils Percent Auto 0.3 % (0.2-1.2); Eosinophils Percent Auto 0.1 % (0-4.4); Hematocrit 36.1 % (37.0-47.0); Hemoglobin 11.5 g/dL (12.0-15.0); Immature Granulocyte Absolute 0.08 K/mm3 (0.00-0.031); Immature Granulocyte Percent A 0.5 % (0-0.5); Lymphocytes Absolute Auto 2.24 K/mm3 (0.9-3.2); Lymphocytes Percent Auto 14.5 % (18.3-44.2); Mean Corpuscular HGB Conc 31.9 g/dl (32-36); Mean Corpuscular Hemoglobin 27.3 pg (26-34); Mean Corpuscular Volume 85.5 fl (80-100); Mean Platelet Volume 10.1 fl (7.4-10.4); Monocytes Absolute Auto 0.7 K/mm3 (0.1-0.6); Monocytes Percent Auto 4.8 % (2.6-8.5); Neutrophils Absolute Auto 12.4 K/mm3 (1.3-6.7); Neutrophils Percent Auto 79.8 % (45.5-73.1); Platelet Count Result 304 k/mm3 (150-375); Red Blood Count 4.22 M/mm3 (4.2-5.4); Red Cell Distribution Width 13.8 % (11.5-14.5); White Blood Count 15.5 K/mm3 (4.5-10.0)
[2024-09-17 08:12] LABS: Alanine Aminotransferase 16 U/L (6-35); Albumin Level 4.4 g/dL (3.5-5.1); Alkaline Phosphatase 92 U/L (38-126); Anion Gap 12 mmol/L (4-12); Aspartate Amino Transferase 23 U/L (14-36); Bilirubin,Total 0.4 mg/dL (0.2-1.3); Blood Urea Nitrogen 20 mg/dL (7-17); Carbon Dioxide 24 mmol/L (22-30); Chloride 107 mmol/L (98-107); Estimated CRCL calculation 91 ml/min; Estimated Glomerular Filt Rate > 60; Glucose 109 mg/dL (65-110); Potassium 3.3 mmol/L (3.4-5.0); Sodium 143 mmol/L (137-145)
[2024-09-17 08:17] LABS: Partial Thromboplastin Time 26.1 Seconds (22.3-36.8); Prothrombin Time 13.6 Seconds (11.1-14.7)
--- NOTE | 2024-09-17 09:27 | PC.NURSE ---
Patient ambulated to the restroom with steady gate
[2024-09-17 09:30] VITALS: BP 129/78; PULSE 60; RESP 18; O2SAT 97
[2024-09-17 09:59] LABS: Add Urine Microscopic? YES; Appearance Urine Turbid (Clear); Bacteria Urine None Seen /hpf; Bilirubin Urine 1+ (Negative); Blood Urine 3+ (Negative); Glucose Urine UA Negative (Negative); Ketones Urine 2+ mg/dL (Negative); Leukocyte Esterase Ur 2+ LEU/UL (Negative); Nitrate Urine Positive (Negative); Non Pathogenic Casts 0-2; Protein Urine 3+ mg/dL (Negative); RBC Urine >100 /hpf (0-2); Specific Grav Ur 1.025 (1.001-1.035); Squamous Epithelial Cell Urine Occasional /hpf (Few); WBC Urine 51-100 /hpf (0-3); pH Urine 5.5 (5.0-9.0)
[2024-09-17 10:12] LABS: Color Urine Brown (Yellow)
[2024-09-17 10:30] VITALS: BP 128/74; PULSE 65; RESP 18; O2SAT 95
== END 2024-09-17 11:19 | disposition home or self-care (01) ==
PROVIDERS: Emergency Provider Emergency Medicine
DX: N39.0 Urinary tract infection, site not specified (principal); R10.9 Unspecified abdominal pain; Z98.890 Other specified postprocedural states; I10 Essential (primary) hypertension; N13.30 Unspecified hydronephrosis; Z79.899 Other long term (current) drug therapy
CPT/HCPCS: 36415; 74176; 80053; 81001; 85025; 85610; 85730; 87086; 96361; 96374; 96375; 99284; J1885; J2405; J7030

== ENCOUNTER 2024-12-11 12:57 | Outpatient (CLI) | payer OTHER, SELFPAY ==
--- OUTSIDE RECORDS SUMMARY | 2024-12-11 13:07 | XMS_ITS | Referral Summary ---
Author Organization [address] Address [address] [place] [phone] Care Team Providers Care Corn Picker Name Role Phone Marcia Helms PROFILE TRIMMER Primary Care Provider [phone] Encounters Date Type Department Care Team Description 11/20/2024 Results Follow-Up [facility] Family Medicine [address] [place] [address] [place] [phone] Marcia Helms NP 11/13/2024 7:30 AM CDT Office Visit [facility] Internal Medicine at [address] [place] [address] Marcia Helms NP Physical exam, annual (Primary Dx); BMI 31.0-31.9,adult; Obesity (BMI 30-39.9); Essential hypertension; Vitamin D deficiency; Screening for thyroid disorder; Screening for cholesterol level from Last 3 Months Allergies No known active allergies Medications fzxngnjj-gwga-HM- calcium-mins 18 mg iron-400 mcg-500 mg Ca tablet Take by mouth daily Active lisinopriL (PRINIVIL,ZESTRIL ) 20 mg tabletIndications :Essential hypertension Take 1 tablet (20 mg total) by mouth daily 90 tablet 3 5 11/14/19 26 Active ascorbic acid, vitamin C, 250 mg tablet,chewable Take by mouth daily 11/14/19 25 Discontinu ed(Therapy completed) vitamin b complex tablet Take 1 tablet by mouth daily 11/14/19 25 Discontinu ed(Therapy completed) riboflavin (Vitamin B-2) 100 mg tablet 3 11/14/19 25 Discontinu ed(Therapy completed) lisinopriL (PRINIVIL,ZESTRIL ) 20 mg tabletIndications :Essential hypertension Take 1 tablet (20 mg total) by mouth daily 30 tablet 11 3 11/14/19 25 Discontinu ed(Reorder ) aspirin 81 mg chewable tablet Take 1 tablet (81 mg total) by mouth daily 11/14/19 25 Discontinu ed(Therapy completed) coenzyme Q10 10 mg capsule Take 1 capsule (10 mg total) by mouth daily 11/14/19 25 Discontinu ed(Therapy completed) metoprolol XL (TOPROL-XL) 25 mg extended release tabletIndications :Palpitations TAKE 1 TABLET(25 MG) BY MOUTH DAILY 90 tablet 4 11/14/19 Discontinu ed(Therapy completed) Active Problems Problem Noted Date Diagnosed Date Vitamin D deficiency 11/13/2024 Overview (11/13/2024): Have lab work completed Hypersomnia 06/28/2023 Snoring 04/26/2023 Assessment & Plan (06/28/2023 2:21 PM LAYER OUT PLATE GLASS): Due to continuing symptoms of snoring and [...] includes: Discussed diet and exercising counseling. BMI 31.0-31.9,adult 01/29/2023 Assessment & Plan (11/13/2024 7:22 AM CDT): Discussed the patients BMI: The [...] Will resume metrogel bid Will refer to derm to discuss further her desire to resume accutane Screening for thyroid disorder 01/04/2022 Essential hypertension 01/04/2022 Assessment & Plan [...] Free, Antibiotic Free, Intramuscular 05/05/2019 Influenza, Unspecified 05/18/2024,04/16/2023, Tdap 05/18/2016 Social History Tobacco Use Types [...] points, staff should administer the PHQ-9) 0 11/13/2024 Comments Unknown Sex and Gender Information Value Date Recorded Sex Assigned at Not on file Legal Sex Female 8:27 AM CDT Gender Identity Not on file Sexual Orientation Not on file 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 Not on leonel e Last Filed Vital Signs Vital Sign Reading Time Taken Comments Blood Pressure 130/80 11/13/2024 7:17 AM CDT Pulse 82 11/13/2024 7:17 AM CDT Temperature 36.8 C (98.2 F) 11/13/2024 7:17 AM CDT Respiratory Rate 18 06/28/2023 2:10 PM LAYER OUT PLATE GLASS Oxygen Saturation 98% 11/13/2024 7:17 AM CDT Inhaled Oxygen Concentration - - Weight 80.6 kg (177 lb 9.6 oz) 11/13/2024 7:17 A M CDT Height 160 cm (5' 3 ) 11/13/2024 7:17 AM CDT Body Mass Index 31.46 11/13/2024 7:17 AM CDT Plan of Treatment Not on file Procedures Procedure Name Priority Date/Time Associated Diagnosis Comments LIPID PANEL Routine 11/14/2024 7:35 AM CDT Screening for cholesterol level TSH Routine 11/14/2024 7:35 AM CDT Screening for thyroid disorder VITAMIN D 25 HYDROXY Routine 11/14/2024 7:35 AM CDT Vitamin D deficiency COMPREHENSIVE METABOLIC PANEL Routine 11/14/2024 7:35 AM CDT Essential hypertension from Last 3 Months Results * Vitamin D 25 hydroxy (11/14/2024 7:35 AM CDT) Vitamin D, 25-Hydroxy 34.2 30.0 - 100.0 ng/mL [facility] - 01 Comment: Vitamin D deficiency has been defined by the [place] of [employer] and an Endocrine Society practice guideline as a level of serum 25-OH vitamin D less than 20 ng/mL (1,2). The Endocrine Society went on to further define vitamin D insufficiency as a level between 21 and 29 ng/mL (2). 1. IOM ([place] of [employer]). 2010. Dietary reference intakes for calcium and D. [place]: The National Academies Press. 2. Wei MF, Kirstin ESPOSITO, Devonte DAMIAN, et al. Evaluation, treatment, and prevention of vitamin D deficiency: an Endocrine Society clinical practice guideline. JCEM. 2010; 96(7):1911-30. Blood 11/14/2024 7:35 AM CDT 11/14/2024 Narrative [facility] - 11/15/2024 7:37 AM CDT Performed at: - [facility] [id number] Residential Sales Representative: Helder Diaz PhD, Phone: [phone] us Marcia Helms PROFILE TRIMMER LAB BLOOD ORDERABLES Final Re sult [facility] - 01 * TSH (11/14/2024 7:35 AM CDT) TSH 2.530 0.450 - 4.500 uIU/mL [facility] - 01 Blood 11/14/2024 7:35 AM CDT 11/14/2024 Narrative [facility] - 11/15/2024 7:37 AM CDT Performed at: [address] [id number] Residential Sales Representative: Helder Diaz PhD, Phone: [phone] Marcia Helms PROFILE TRIMMER LAB BLOOD ORDERABLES Final Re sult Performing Organization Address [facility]/ZIP Co de Phone Number [facility] - 01 * (ABNORMAL) Lipid panel (11/14/2024 7:35 AM CDT) Pathologist [facility] Cholesterol 180 100 - 199 mg/dL [facility] - 01 Triglycerides 98 0 - 149 mg/dL [facility] - 01 HDL Cholesterol 49 >39 mg/dL [facility] - 01 VLDL 18 5 - 40 mg/dL [facility] - 01 LDL, calculated 113(H) 0 - 99 mg/dL [facility] - 01 Blood 11/14/2024 7:35 AM CDT 11/14/2024 Narrative [facility] - 11/15/2024 7:37 AM CDT Performed at: [address] [id number] Residential Sales Representative: Helder Diaz PhD, Phone: [phone] Marcia Helms PROFILE TRIMMER LAB BLOOD ORDERABLES Final Re sult [facility] - 01 * (ABNORMAL) Comprehensive metabolic panel (11/14/2024 7:35 AM CDT) Glucose 81 70 - 99 mg/dL [facility] - 01 BUN 16 6 - 20 mg/dL [facility] - 01 Creatinine, Serum 0.68 0.57 - 1.00 mg/dL [facility] - 01 eGFR 114 >59 mL/min/1.73 [facility] - 01 BUN/creat ratio 24(H) 9 - 23 [facility] - 01 Sodium 137 134 - 144 mmol/L [facility] - 01 Potassium, sr 4.9 3.5 - 5.2 mmol/L [facility] - 01 Chloride 102 96 - 106 mmol/L [facility] - 01 CO2 21 20 - 29 mmol/L [facility] - 01 Calcium 9.6 8.7 - 10.2 mg/dL [facility] - 01 Protein, sr 7.3 6.0 - 8.5 g/dL [facility] - 01 Albumin 4.6 3.9 - 4.9 g/dL [facility] - 01 Globulin, Total 2.7 1.5 - 4.5 g/dL [facility] - 01 Bilirubin, Total 0.3 0.0 - 1.2 mg/dL [facility] - 01 Alk phos 97 44 - 121 IU/L [facility] - 01 AST 16 0 - 40 IU/L [facility] - 01 ALT 13 0 - 32 IU/L [facility] - 01 Blood 11/14/2024 7:35 AM CDT 11/14/2024 Narrative [facility] - 11/15/2024 7:37 AM CDT Performed at: - [facility] [place] [id number] Residential Sales Representative: Helder Diaz PhD, Phone: [phone] Specimen Comment: A courtesy copy of this report has been sent to [phone] Marcia Helms NP LAB BLOOD ORDERABLES Final Re sult [facility] - 01 from Last 3 Months Insurance [facility] PLUS [facility] PL[facility] Care Teams Corn Picker Relationship Specialty Start Date End Date Marcia Helms NP [address] [place] [address] PCP - General Internal Medicine 11/10/22
--- OUTSIDE RECORDS SUMMARY | 2024-12-11 13:07 | XMS_ITS | Encounter Summary ---
Author Organization [facility] Healthcare Address [address] [place] [address] Care Team Providers Care Onion Tier Name Role Phone Marcia Helms NP Primary Care Provider [phone] Encounter Details Date Type Department Care Team (Late st Contact Info) Description 11/20/2024 Results Follow-Up [facility] Family Medicine [address] [place] [address] Marcia Helms, BE [address] [place] [address] Social History Tobacco Use Types Packs/Day Years Used Date Smoking Tobacco: Never Smokeless Tobacco: Never AUDIT-C Answer Date Recorded Q1: How often [...] 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
--- OUTSIDE RECORDS SUMMARY | 2024-12-11 13:07 | XMS_ITS | Clinical Summary ---
Author Organization [facility] Address [address] [place] [address] Care Team Providers Care Pit Worker Power Shovel Name Role Phone Angel Hernandez MD Unavailable [phone] Source Comments [facility],non-[facility] Affiliates and Associated Physician Practices is amultiple site organization consisting of ambulatory clinics and hospital sitesin [place], [place], [place] and [place]. This disclosure is being madepursuant to the Care Everywhere program and may not contain all information available regarding this patient. Last updated 18.[employer] [facility] Allergies No known active allergies Medications * Be aware that medications may not be up to date on this document. Alwaysverify current medications with the patient. guanFACINE (TENEX) 2 MG tablet Take 2 mg by mouth at bedtime Active benzonatate (TESSALON) 200 MG capsuleIndicati ons:Acute maxillary sinusitis, recurrence not specified Take 1 capsule by mouth 3 times daily as needed for Cough 30 capsule 10/02/2018 Active Social History Tobacco Use Types Packs/Day Years Used Date Smoking Tobacco: Never Smokeless Tobacco: Never Alcohol Use Standard Drinks/Week Comments No 0 (1 standard drink = 0.6 oz pur e alcohol) Comments No Sex and Gender Information Value Date Recorded Sex Assigned at Not on file Legal Sex Female 6:41 AM CDT Gender Identity Not on file Sexual Orientation Not on file Last Filed Vital Signs Vital Sign Reading Time Taken Comments Blood Pressure 126/84 10/02/2018 4:27 PM MANAGER AUDIO Pulse 88 10/02/2018 4:27 PM MANAGER AUDIO Temperature 36.7 C (98 F) 10/02/2018 4:27 PM MANAGER AUDIO Respiratory Rate 16 10/02/2018 4:27 PM MANAGER AUDIO Oxygen Saturation 98% 10/02/2018 4:27 PM MANAGER AUDIO Inhaled Oxygen Concentration - - Weight 72.6 kg (160 lb) 10/02/2018 4:27 PM MANAGER AUDIO Height 160 cm (5' 3 ) 10/02/2018 4:27 PM MANAGER AUDIO Body Mass Index 28.34 10/02/2018 4:27 PM MANAGER AUDIO Plan of Treatment Health Maintenance Due Date Last Done Comments PAP SMEAR 1985 HIV SCREENING 2000 HEPATITIS C SCREENING 08/30/2003 DTAP/TDAP/TD VACCINES (1 - Tdap) 2004 HEPATITIS B VACCINE (1 of 3 - 19+ 3-dose series) 2004 COVID-19 VACCINE ( - 2023-2 5 season) 2024 DEPRESSION SCREENING 07/30/2024 INFLUENZA VACCINE (Season Ended) 2025 ZOSTER VACCINE (1 of 2) 2035 HIB VACCINE Aged Out No longer eligi ble based on patient's age to complete this topic HPV VACCINE Aged Out No longer eligi ble based on patient's age to complete this topic MENINGOCOCCAL (Group B) VACC INE SHARED DECISION-MAKING Aged Out No longer eligibl e based on patient's age to complete this topic MENINGOCOCCAL GROUPS A/C/Y/W VACCINE Aged Out No longer eligible b ased on patient's age to complete this topic PNEUMOCOCCAL VACCINE Aged Out No long er eligible based on patient's age to complete this topic [place] [address] [place] [address] [facility] SELF PAY NO INSURANCE Member Subscriber Plan / Payer (Ef fective for All Dates) Name:Modesta Batista Member ID:Not on file Relation to Subscriber:Not on file Name:MODESTA BATISTA Subscriber ID:Not on file (Home) Address: [address] [place] [phone] Payer ID:Not on file Group ID:Not on file Type:Self Pay Address: [facility] Care Teams Pit Worker Power Shovel Relationship Specialty Start Date End Date Angel Hernandez MD CONTRERAS MOSLEY 07/20/08
--- OUTSIDE RECORDS SUMMARY | 2024-12-11 13:07 | XMS_ITS | Clinical Summary ---
Author Organization [facility] [address] [facility] Address [address] [place] [address] Care Team Providers Care Design Assistant Name Role Phone Marcia Helms NP Primary Care Provider Allergies No known active allergies Medications bftumtce-yuhg-OX- calcium-mins 18 mg iron-400 mcg-500 mg Ca [...] BY MOUTH DAILY 90 tablet 4 11/14/19 25 Discontinu ed(Therapy completed) Active Problems Problem Noted Date Diagnosed Date Vitamin D deficiency 11/13/2024 Overview (11/13/2024): Have lab work completed Hypersomnia 06/28/2023 Snoring 04/26/2023 Assessment & Plan (06/28/2023 2:21 PM DOCK MANAGER): Due to continuing symptoms of snoring [...] nutrition counseling, exercise counseling and education provided. Encounters Date Type Department Care Team Description 11/20/2024 Results Follow-Up [facility] Family Medicine [address] [place] [address] [place] [phone] Marcia Helms NP 11/13/2024 7:30 AM CDT Office Visit [facility] Internal Medicine at [address] [place] [address] Marcia Helms NP Physical exam, annual (Primary Dx); BMI 31.0-31.9,adult; Obesity (BMI 30-39.9); Essential hypertension; Vitamin D deficiency; Screening for thyroid disorder; Screening for cholesterol level from Last 3 Months Immunizations Immunization Administration Dates Next Due Influenza, Quadrivalent, Justine l Culture-based MDCK, Preservative Free, Antibiotic Free, Intramuscular 05/05/2019 Influenza, Unspecified 05/18/2024,04/16/2023, Tdap 05/18/2016 Surgical History Surgery Date Site/Laterality [...] 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 file Not on leonel e Obstetrics History Last Filed Vital Signs Vital Sign Reading Time Taken Comments Blood Pressure 130/80 11/13/2024 7:17 AM CDT Pulse 82 11/13/2024 7:17 AM CDT Temperature 36.8 C (98.2 F) 11/13/2024 7:17 AM CDT Respiratory Rate 18 06/28/2023 2:10 PM DOCK MANAGER Oxygen Saturation 98% 11/13/2024 7:17 AM CDT Inhaled Oxygen Concentration - - Weight 80.6 kg (177 lb 9.6 oz) 11/13/2024 7:17 A M CDT Height 160 cm (5' 3 ) 11/13/2024 7:17 AM CDT Body Mass Index 31.46 11/13/2024 7:17 AM CDT Plan of Treatment Health Maintenance Due Date Last Done Comments Cervical Cancer Screening 1985 Hepatitis C Screening 1985 Varicella Vaccines (1 of 2 - 13+ 2-dose series) 1998 Hepatitis B Screening 2003 Covid-19 Vaccine ( season) 2024 05/13/2021, 08/09/2020, 07/19/2020 Depression Screening 11/13/2025 11/13/2024, 04/26/2023, 01/29/2023, Additional history exists Regular Well Visit/Exam 18-64 11/13/2025 11/13/2024, 11/10/2022 DTaP/Tdap/Td Vaccine (2 - Td or Tdap) 05/18/2026 05/18/2016 Influenza Vaccine Completed 05/18/2024, , 05/13/2022, Additional history exists HPV Vaccines Aged Out No longer eligi ble based on patient's age to complete this topic Pneumococcal vaccine <65 Aged Out No longer eligible based on patient's age to complete this topic Procedures Procedure Name Priority Date/Time Associated Diagnosis [...] D deficiency has been defined by the [place] of Medicine and an Endocrine Society practice guideline as a level of serum 25-OH vitamin D less than 20 ng/mL (1,2). The Endocrine Society went on to further define vitamin D insufficiency as a level between 21 and 29 ng/mL (2). 1. IOM ([place] of [employer]). 2010. Dietary reference intakes for calcium and D. [place]: The National Academies Press. 2. Wei MF, Kirstin ESPOSITO, Devonte DAMIAN, et al. Evaluation, treatment, and prevention of vitamin D deficiency: an Endocrine Society clinical practice guideline. JCEM. 2010; 96(7):1911-30. Blood 11/14/2024 7:35 AM CDT 11/14/2024 Narrative [facility] - 11/15/2024 7:37 AM CDT Performed at: [address] [place] [id number] Talent Analyst: Helder Diaz PhD, Phone: [phone] Marcia Helms DEPENDENCY PROGRAM DIRECTOR LAB BLOOD ORDERABLES Final Re sult Performing Organization Address [facility] de Phone Number [facility] - * TSH (11/14/2024 7:35 AM CDT) Pathologist [facility] TSH 2.530 0.450 - 4.500 uIU/mL [facility] - 01 Blood 11/14/2024 7:35 AM CDT 11/14/2024 Narrative [facility] - 11/15/2024 7:37 AM CDT Performed at: [address] [place] [id number] Talent Analyst: Helder Diaz PhD, Phone: [phone] Marcia Helms DEPENDENCY PROGRAM DIRECTOR LAB BLOOD ORDERABLES Final Re sult Performing Organization Address [facility] de Phone Number [facility] - 01 * (ABNORMAL) Lipid panel (11/14/2024 7:35 AM CDT) Cholesterol 180 100 - 199 mg/dL [facility] - 01 Triglycerides 98 0 - 149 mg/dL [facility] - 01 HDL Cholesterol 49 >39 mg/dL [facility] - 01 VLDL 18 5 - 40 mg/dL [facility] - 01 LDL, calculated 113(H) 0 - 99 mg/dL [facility] - 01 Blood 11/14/2024 7:35 AM CDT 11/14/2024 Narrative [facility] - 11/15/2024 7:37 AM CDT Performed at: [address] [id number] Talent Analyst: Helder Diaz PhD, Phone: [phone] us Marcia Helms DEPENDENCY PROGRAM DIRECTOR LAB BLOOD ORDERABLES [facility] 01 * (ABNORMAL) Comprehensive metabolic panel (11/14/2024 [...] - 11/15/2024 7:37 AM CDT Performed at: 01 - [facility] [address] [id number] Talent Analyst: Helder Diaz PhD, Phone: [phone] Specimen Comment: A courtesy copy of this report has been sent to [phone] Marcia Helms NP LAB BLOOD ORDERABLES Final Re sult [facility] - 01 from Last 3 Months Insurance [place] [employer] [place] [employer] Care Teams Design Assistant Relationship Specialty Start Date End Date Marcia Helms NP [address] [address] PCP - General Internal Medicine 11/10/22
[2024-12-11 13:32] LABS: Basophils Percent Auto 0.4 % (0.2-1.2); Eosinophils Absolute Auto 0.1 K/mm3 (0-0.3); Eosinophils Percent Auto 0.6 % (0-4.4); Hematocrit 35.6 % (37.0-47.0); Hemoglobin 11.4 g/dL (12.0-15.0); Immature Granulocyte Absolute 0.03 K/mm3 (0.00-0.031); Immature Granulocyte Percent A 0.3 % (0-0.5); Lymphocytes Absolute Auto 2.95 K/mm3 (0.9-3.2); Lymphocytes Percent Auto 27.6 % (18.3-44.2); Mean Corpuscular Hemoglobin 27.1 pg (26-34); Mean Corpuscular Volume 84.8 fl (80-100); Mean Platelet Volume 9.6 fl (7.4-10.4); Monocytes Absolute Auto 0.3 K/mm3 (0.1-0.6); Monocytes Percent Auto 2.8 % (2.6-8.5); Neutrophils Absolute Auto 7.3 K/mm3 (1.3-6.7); Neutrophils Percent Auto 68.3 % (45.5-73.1); Platelet Count Result 360 k/mm3 (150-375); Red Cell Distribution Width 13.7 % (11.5-14.5); White Blood Count 10.7 K/mm3 (4.5-10.0)
== END 2024-12-11 12:58 | disposition home or self-care (01) ==
LOC: ANHSURGERY 13:02
PROVIDERS: PCP Nurse Practitioner Family; Visit Provider Obstetrics & Gynecology
DX: D21.9 Benign neoplasm of connective and other soft tissue, unspecified (principal); N92.6 Irregular menstruation, unspecified; R10.2 Pelvic and perineal pain
CPT/HCPCS: 36415; 85025; 86850; 86900; 86901

== ENCOUNTER 2024-12-19 01:51 | Day surgery (SDC) | payer OTHER, SELFPAY ==
[2024-12-11 10:37] VITALS: BMI 31.6
--- NOTE | 2024-12-11 10:44 | PC.NURSE ---
Report to the Outpatient Waiting Room, entrance under the green pavilion located off [facility], at time _0730_ on date _[id number]_. Planned Procedure Time: _0930_.? Time changes happen often and if your time is changed the preop area will call you the afternoon before. - You and your visitor will be asked to self-screen and do not enter if you have any COVID symptoms. Please call surgeon if you need to reschedule. - A mask is optional within the hospital at this time. Patients may have clear liquids (water, carbonated beverages, clear teas, apple juice) until 3 hours prior to surgery with a maximum of 20 ounces. - No food from midnight until time of surgery and no smoking, or chewing tobacco (or any form of nicotine). No chewing gum, candy or mints. Take only the following medications with a SIP of water on the morning of surgery: ___None____ DO NOT STOP ANY OF YOUR OTHER PRESCRIPTION MEDICATIONS PRIOR TO SURGERY EXCEPT THE FOLLOWING Hold all vitamins and supplements for 3 days per anesthesiologist. Medications to discontinue per physician Date to take last uuei___[id number]___ Please no make-up, nail somali, hairspray, perfume, deodorant, or body powder the day of surgery.? No jewelry (including any body piercings) or valuables the day of surgery, leave them at home.? Please take a shower or bath the night before, or the morning of, surgery with an antibacterial soap.? Wear comfortable, loose fitting clothing.? - Jewelry must be removed prior to entering the operating room.? Rings and piercings that are not removed may be cut off. - The hospital will not accept responsibility for valuables.? - Please leave all valuables, including medications, at home the day of surgery. If you are going home after surgery, a licensed power truck driver must drive you home.? - NO public transportation without another adult if you receive anesthesia. - We recommend that an adult stay with you for 24 hours following discharge. - We also recommend that you do not drive, make important decision, drink alcoholic beverages, or take any drugs that were not prescribed by your health care provider for at least 24 hours after your discharge time. Follow any additional instructions given to you from your surgeon. Telephone instructions given to __[place]___and asked if any additional questions and then verbalized understanding. Patient advised to call surgeon office or pre surgery nurse liaison [phone] if any additional questions.
--- NOTE | 2024-12-17 11:59 | PM.IMHP ---
H&P: HPI History of Present Illness Date/Time: 12/17/24 11:59 Chief Complaint: Uterine fibroids/excessive heavy bleeding/pelvic pain Narrative: 39-year-old female 3 para 3 who is admitted for robotic hysterectomy and bilateral salpingectomy. His excessive heavy bleeding pain discomfort she had a previous DVT. She has uterine fibroids on imaging. Risks and benefits of hysterectomy bilateral salpingectomy reviewed including min exclusive of , aspiration pneumonia, bleeding, transfusion, perforation injury to bladder, ureters need for laparotomy she received the ACOG handout entitled hysterectomy as well as the de Gabriela handout. She had all questions answered. Asked to proceed Review of Systems Review of Systems: All systems reviewed & are unremarkable except as noted in HPI and below PMFSH Past Medical History Medical History HTN (hypertension) Overweight (BMI 25.0-29.9) Gestational hypertension Gestational diabetes Surgical History Surgical History Previous section X 3 Family History Family History Mother Family history of thyroid disease Sibling Family history of thyroid disease Grandparent Family history of heart disease in male family member before age 55 Diabetes mellitus Social History Social History Smoking status: Never smoker Second hand tobacco smoke exposure: No Alcohol intake: never Substance use: never Substance use type: does not use Living arrangements: with family Gender identity (if verbalized by the patient): Female Spiritual care concerns: No Meds Home Medications and Allergies Home Medications ?Medication ?Instructions ?Recorded ?Confirmed ?Type ascorbic acid (vitamin C) 500 mg 500 mg PO DAILY 01/03/22 12/11/24 History tablet (Vitamin C) multivitamin 1 tablet PO DAILY 01/03/22 12/11/24 History lisinopril 10 mg tablet 10 mg PO DAILY 01/04/22 12/11/24 History Allergies Allergy/AdvReac Type Severity Reaction Status Date / Time No Known Allergies Allergy Verified 12/11/24 10:35 Exam Const: General: cooperative, healthy appearing, comfortable and overweight Orientation/consciousness: oriented to person, oriented to place and oriented to time HENMT: Head: normal to inspection Resp: Effort & Inspection: normal respiratory effort Cardio: Rate: regular rate Rhythm: regular rhythm Heart sounds: S1 normal heart sound present and S2 normal heart sound present GI: Inspection: normal to inspection Auscultation: normal bowel sounds : External Female Exam: normal external appearance Speculum Exam - Vagina: normal appearance of the vagina Speculum Exam - Cervix: normal appearance of the cervix Bimanual exam- vagina & uterus: boggy, enlarged and Uterine tenderness Bimanual Exam- Adnexa, other: normal adnexae Assessment and Plan Assessment and plan (1) Uterine fibroid: Code(s): D25.9 - Leiomyoma of uterus, unspecified Status: Acute (2) Dysmenorrhea: Code(s): N94.6 - Dysmenorrhea, unspecified Status: Acute Plan Will proceed with robotic total vaginal hysterectomy and bilateral salpingectomy
[2024-12-19] VITALS (12 sets, daily range): BP systolic 99–146; BP diastolic 57–79; PULSE 67–83; RESP 12–20; TEMP 36.2–36.9; O2SAT 95–100
--- OUTSIDE RECORDS SUMMARY | 2024-12-19 01:54 | XMS_ITS | Clinical Summary ---
Author Organization [facility] Address [address] [facility] [place] [address] Care Team Providers Care Publicity Director Name Role Phone Angel Hernandez MD Unavailable [phone] Source Comments [facility],non-[facility] Affiliates and Associated Physician Practices is amultiple site organization consisting of ambulatory clinics and hospital sitesin [place], [place], [place] and [place]. This disclosure is being madepursuant to the Care Everywhere program and may not contain all information available regarding this patient. Last updated 18.[employer] [facility] Allergies No known active allergies Medications * [...] Comments Blood Pressure 126/84 10/02/2018 4:27 PM LPN INSTRUCTOR Pulse 88 10/02/2018 4:27 PM LPN INSTRUCTOR Temperature 36.7 C (98 F) 10/02/2018 4:27 PM LPN INSTRUCTOR Respiratory Rate 16 10/02/2018 4:27 PM LPN INSTRUCTOR Oxygen Saturation 98% 10/02/2018 4:27 PM LPN INSTRUCTOR Inhaled Oxygen Concentration - - Weight 72.6 kg (160 lb) 10/02/2018 4:27 PM LPN INSTRUCTOR Height 160 cm (5' 3 ) 10/02/2018 4:27 PM LPN INSTRUCTOR Body Mass Index 28.34 10/02/2018 4:27 PM LPN INSTRUCTOR Plan of Treatment Health Maintenance Due Date [...] patient's age to complete this topic [place] [address] [facility] SELF PAY NO INSURANCE Member Subscriber Plan / Payer (Ef fective for All Dates) Name:Modesta Batista Member ID:Not on file Relation to Subscriber:Not on file Name:MODESTA BATISTA Subscriber ID:Not on file (Home) Address: [address] [place] [phone] Payer ID:Not on file Group ID:Not on file Type:Self Pay Address: [facility] Care Teams Publicity Director Relationship Specialty Start Date End Date Angel Hernandez MD CONTRERAS MOSLEY 07/20/08
--- OUTSIDE RECORDS SUMMARY | 2024-12-19 01:54 | XMS_ITS | Clinical Summary ---
Author Organization [facility] [address] [facility] Address [address] [place] [address] Care Team Providers Care Cold Food Packer Name Role Phone Marcia Helms NP Primary Care Provider [phone] Allergies No known active allergies Medications nttrtpxi-asin-VA- calcium-mins 18 mg iron-400 mcg-500 mg Ca tablet Take by mouth daily Active lisinopriL (PRINIVIL,ZESTRIL ) 20 mg tabletIndications :Essential hypertension Take 1 tablet (20 mg total) by mouth daily 90 tablet 3 11/13/2024 11/14/19 26 Active Active Problems Problem Noted Date Diagnosed Date Vitamin D deficiency 11/13/2024 Overview (11/13/2024): Have lab work completed Hypersomnia 06/28/2023 Snoring 04/26/2023 Assessment & Plan (06/28/2023 2:21 PM ENROLLMENT NURSE): Due to continuing symptoms of snoring and [...] Date Resolved Date BMI 29.0-29.9,adult 11/10/2022 01/30/20 BMI 30.0-30.9,adult 01/04/2022 12/15/19 Assessment & Plan (01/04/2022 9:20 AM CDT): Discussed the patient's BMI. The BMI is above average. BMI management plan is completed. BMI Follow-up includes: nutrition counseling, exercise counseling and education provided. Encounters Date Type Department Care Team Description 11/20/2024 Results Follow-Up [facility] Family Medicine [address] [place] [address] [address] Marcia Helms NP Comprehensive metabolic panel, Vitamin D 25 hydroxy, TSH, Lipid panel 11/13/2024 7:30 AM CDT Office Visit 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 Not on leonel e Obstetrics History Last Filed Vital Signs Vital Sign Reading Time Taken Comments Blood Pressure 130/80 11/13/2024 7:17 AM CDT Pulse 82 11/13/2024 7:17 AM CDT Temperature 36.8 C (98.2 F) 11/13/2024 7:17 AM CDT Respiratory Rate 18 06/28/2023 2:10 PM ENROLLMENT NURSE Oxygen Saturation 98% 11/13/2024 7:17 AM CDT [...] D 25 hydroxy (11/14/2024 7:35 AM CDT) [facility] Vitamin D, 25-Hydroxy 34.2 30.0 - 100.0 ng/mL [facility] - 01 Comment: Vitamin D deficiency has been defined by the [place] of Medicine and an Endocrine Society practice guideline as a level of serum 25-OH vitamin D less than 20 ng/mL (1,2). The Endocrine Society went on to further define vitamin D insufficiency as a level between 21 and 29 ng/mL (2). 1. IOM ([place] of Medicine). 2010. Dietary reference intakes for calcium and D. [place]: The National Academies Press. 2. Wei MF, Kirstin NC, Devonte DAMIAN, et al. Evaluation, treatment, and prevention of vitamin D deficiency: an Endocrine Society clinical practice guideline. JCEM. 2010; 96(7):1911-30. Blood 11/14/2024 7:35 AM CDT 11/14/2024 Narrative [facility] - 11/15/2024 7:37 AM CDT Performed at: [address] [id number] Associate Professor Of Violin: Helder Diaz PhD, Phone: [phone] Marcia Helms FITTING ROOM OPERATOR LAB BLOOD ORDERABLES Final Re sult Performing Organization Address [facility] Co de Phone Number [facility] - 01 * TSH (11/14/2024 7:35 AM CDT) Pathologist [facility] TSH 2.530 0.450 - 4.500 uIU/mL [facility] - 01 Blood 11/14/2024 7:35 AM CDT 11/14/2024 Narrative [facility] - 11/15/2024 7:37 AM CDT Performed at: [address] [id number] Associate Professor Of Violin: Helder Diaz PhD, Phone: [phone] Marcia Helms FITTING ROOM OPERATOR LAB BLOOD ORDERABLES Final Re sult Performing Organization Address [facility] de Phone Number [facility] - 01 * (ABNORMAL) Lipid panel (11/14/2024 7:35 AM CDT) [facility] Cholesterol 180 100 - 199 mg/dL [facility] - 01 Triglycerides 98 0 - 149 mg/dL [facility] - 01 HDL Cholesterol 49 >39 mg/dL [facility] - 01 VLDL 18 5 - 40 mg/dL [facility] - 01 LDL, calculated 113(H) 0 - 99 mg/dL [facility] - 01 Blood 11/14/2024 7:35 AM CDT 11/14/2024 Narrative [facility] - 11/15/2024 7:37 AM CDT Performed at: [address] [id number] Associate Professor Of Violin: Helder Diaz PhD, Phone: [phone] Marcia Helms FITTING ROOM OPERATOR LAB BLOOD ORDERABLES Final Re sult Performing Organization Address [facility] Co de Phone Number [facility] - 01 * (ABNORMAL) Comprehensive metabolic panel (11/14/2024 7:35 AM CDT) Pathologist [facility] Glucose 81 70 - 99 mg/dL [facility] [...] AM CDT Performed at: 01 - [facility] [address] [id number] Associate Professor Of Violin: Helder Diaz PhD, Phone: [phone] Specimen Comment: A courtesy copy of this report has been sent to [phone] us Marcia Helms NP LAB BLOOD ORDERABLES Final Re sult [facility] - 01 from Last 3 Months Insurance [facility] CHOICE PLUS [facility] CHOICE PLUS Care Teams Cold Food Packer Relationship Specialty [place] [address] [place] [address] [address] [place] [address] PCP - General Internal Medicine 11/10/22
--- OUTSIDE RECORDS SUMMARY | 2024-12-19 01:54 | XMS_ITS | Encounter Summary ---
Author Organization [facility] Healthcare Address [address] [place] [address] Care Team Providers Care Hotel Engineer Name Role Phone Marcia Helms HEAVY MACHINERY OPERATOR Primary Care Provider [phone] Encounter Details Date Type Department Care Team (Latest Contact Info) Description 11/20/2024 Results Follow-Up [facility] Family Medicine [address] [place] [address] Marcia Helms, HEAVY MACHINERY OPERATOR [address] [place] [address] Comprehensive metabolic panel, Vitamin D 25 hydroxy, TSH, Lipid panel Social History Tobacco Use Types Packs/Day Years [...] 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
--- OUTSIDE RECORDS SUMMARY | 2024-12-19 01:54 | XMS_ITS | Referral Summary ---
Author Organization [address] [address] Care Team Providers Care Tax Associate Name Role Phone Marcia Helms MASTER CERTIFIED RV TECHNICIAN Primary Care Provider [phone] Encounters Date Type Department Care Team Description 11/20/2024 Results Follow-Up [facility] Family Medicine [address] [place] [address] [place] [address] Marcia Helms NP Comprehensive metabolic panel, Vitamin D 25 hydroxy, TSH, Lipid panel 11/13/2024 7:30 AM CDT Office Visit [facility] Internal Medicine at [address] [place] [address] Marcia Helms NP Physical exam, annual (Primary Dx); BMI 31.0-31.9,adult; Obesity (BMI 30-39.9); Essential hypertension; Vitamin D deficiency; Screening for thyroid disorder; Screening for cholesterol level from Last 3 Months Allergies No known active allergies Medications mopewznu-whse-MF- calcium-mins 18 mg iron-400 mcg-500 mg Ca [...] 04/26/2023 Assessment & Plan (06/28/2023 2:21 PM DATA ANALYTICS ARCHITECT): Due to continuing symptoms of snoring and [...] 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 Not on leonel e Last Filed Vital Signs Vital Sign Reading Time Taken Comments Blood Pressure 130/80 11/13/2024 7:17 AM CDT Pulse 82 11/13/2024 7:17 AM CDT Temperature 36.8 C (98.2 F) 11/13/2024 7:17 AM CDT Respiratory Rate 18 06/28/2023 2:10 PM DATA ANALYTICS ARCHITECT Oxygen Saturation 98% 11/13/2024 7:17 AM CDT [...] D 25 hydroxy (11/14/2024 7:35 AM CDT) [facility] Vitamin D, 25-Hydroxy 34.2 30.0 - 100.0 ng/mL [facility] - 01 Comment: Vitamin D deficiency has been defined by the [place] of Medicine and an Endocrine Society practice guideline as a level of serum 25-OH vitamin D less than 20 ng/mL (1,2). The Endocrine Society went on to further define vitamin D insufficiency as a level between 21 and 29 ng/mL (2). 1. IOM ([place] of Medicine). 2010. Dietary reference intakes for calcium and D. [place]: The National Academies Press. 2. Wei MF, Kirstin ESPOSITO, Devonte DAMIAN, et al. Evaluation, treatment, and prevention of vitamin D deficiency: an Endocrine Society clinical practice guideline. JCEM. 2010; 96(7):1911-30. Blood 11/14/2024 7:35 AM CDT 11/14/2024 Narrative [facility] - 11/15/2024 7:37 AM CDT Performed at: [address] [place] [id number] Joiner: Helder Diaz PhD, Phone: [phone] Marcia Helms MASTER CERTIFIED RV TECHNICIAN LAB BLOOD ORDERABLES Final Re sult Performing Organization Address [facility] de Phone Number [facility] - 01 * TSH (11/14/2024 7:35 AM CDT) Pathologist [facility] TSH 2.530 0.450 - 4.500 uIU/mL [facility] - 01 Blood 11/14/2024 7:35 AM CDT 11/14/2024 Narrative [facility] - 11/15/2024 7:37 AM CDT Performed at: [address] [place] [id number] Joiner: Helder Diaz PhD, Phone: [phone] Marcia Helms MASTER CERTIFIED RV TECHNICIAN LAB BLOOD ORDERABLES Final Re sult Performing Organization Address [facility] de Phone Number [facility] - 01 [...] 7:37 AM CDT Performed at: 01 - [address] [id number] Joiner: Helder Diaz PhD, Phone: [phone] us Marcia Helms MASTER CERTIFIED RV TECHNICIAN LAB BLOOD ORDERABLES Final Re sult [facility] - 01 * (ABNORMAL) Comprehensive metabolic panel (11/14/2024 7:35 AM CDT) Pathologist [facility] Glucose 81 70 - 99 mg/dL [facility] [...] - 11/15/2024 7:37 AM CDT Performed at: [address] [id number] Joiner: Helder Diaz PhD, Phone: [phone] Specimen Comment: A courtesy copy of this report has been sent to [phone] us Marcia Helms MASTER CERTIFIED RV TECHNICIAN LAB BLOOD ORDERABLES Final Re sult [facility] - 01 from Last 3 Months Insurance [facility] CHOICE PLUS Member Subscriber Plan / Payer (Ef fective 2021-Present) Name:Dylon Byrney Relation to Subscriber:Self Name:Modesta Byrne Payer ID:[id number] (NAIC) Type:[facility] HMO/PPO Address: [place] [id number] [facility] CHOICE PLUS Care Teams Tax Associate Relationship Specialty Start Date End Date Marcia Helms, MASTER CERTIFIED RV TECHNICIAN [facility] [place] [address] PCP - General Internal Medicine 11/10/22
--- NOTE | 2024-12-19 06:05 | WPDHPUPDATE1 ---
History and Physical Update Update Date/Time: 12/19/24 06:05 History and Physical has been reviewed, including an updated exam of the patient. There are NO changes in the patient's condition. Risks, benefits, and alternatives have been discussed and questions answered. Patient agrees to proceed with procedure.
[2024-12-19] MEDS: LACTATED RINGERS 1,000 ML 30 ML IV CONT ×2 (06:20→08:44)
[2024-12-19] MEDS: ACETAMINOPHEN 500 MG TABLET 1000 MG PO ×3 (06:30→18:34)
[2024-12-19] MEDS: KETOROLAC 15 MG/ML VIAL (*BKC) IV PUSH (06:32)
--- NOTE | 2024-12-19 06:49 | P.PNAN_ITS ---
Anes - Initial Pre Proc Eval Procedure: Operation Date: 12/19/24 07:30 Proposed Procedures p Robotic Assisted Total Vaginal Hysterectomy with Bilateral Salpingectomy - Ye Frazier MD Date/Time: 12/19/24 06:49 Surgeon: Ye Frazier MD Pre Op Diagnosis: Heavy Excessive Bleeding,Dysmenorrhea, Pelvic Pain Patient Data Age: 39 Gender: F Height: 1.6 m Weight: 78.9 kg Last Vital Signs Temp 36.8 C 12/19/24 06:13 Pulse 72 12/19/24 06:13 Resp 20 12/19/24 06:13 BP 146/79 H 12/19/24 06:13 Pulse Ox 100 12/19/24 06:13 O2 Del Method Room Air 12/19/24 06:13 Allergies Allergy/AdvReac Type Severity Reaction Status Date / Time No Known Allergies Allergy Verified 12/19/24 06:13 Home Medications ?Medication ?Instructions ?Recorded ?Confirmed ?Type ascorbic acid (vitamin C) 500 mg 500 mg PO DAILY 01/03/22 12/19/24 History tablet (Vitamin C) multivitamin 1 tablet PO DAILY 01/03/22 12/19/24 History lisinopril 10 mg tablet 10 mg PO DAILY 01/04/22 12/19/24 History hydrocodone 5 mg-acetaminophen 325 1 tablet PO Q4H PRN pain #20 tabs 12/19/24 Rx mg tablet Patient hx anesthesia problems: none Family hx anesthesia problems: none Results Review: All pre-operative results and documents have been reviewed as part of the pre- operative evaluation. [facility] Past Medical History Medical History HTN (hypertension) Overweight (BMI 25.0-29.9) Gestational hypertension Gestational diabetes Surgical History Surgical History Previous section X 3 Family History Family History Mother Family history of thyroid disease Sibling Family history of thyroid disease Grandparent Family history of heart disease in male family member before age 55 Diabetes mellitus Social History Social History Smoking status: Never smoker Second hand tobacco smoke exposure: No Alcohol intake: never Substance use: never Substance use type: does not use Living arrangements: with family Gender identity (if verbalized by the patient): Female Spiritual care concerns: No Anes - Eval Final PreProcedure Day of Procedure 12/19/24 06:49 Patient weight: obese Heart: regular rate and rhythm Lungs: clear to auscultation Airway: Mallampati scale class II Neurological: alert and oriented Last oral intake: >/= 8 hours ASA classification: II Emergent: no Anesthetic plan: proceed Anesthesia type and monitoring: general ETT and standard monitoring Results Review: All pre-operative results and documents have been reviewed as part of the pre- operative evaluation. Informed Consent: The patient's anesthetic plan and its attendant risks and benefits were discussed with the patient/family/POA. Questions were solicited and answers provided to the satisfaction of the patient/family/POA.
[2024-12-19] MEDS: ceFAZolin 2 GM/D5W 50 ML 2 GM/50 ML BAG IVPB (07:26)
--- NOTE | 2024-12-19 08:32 | W.PM.PROC2 ---
Procedure Note - Detailed Date of Procedure 12/19/24 Pre-op Diagnosis Heavy Excessive Bleeding,Dysmenorrhea, Pelvic Pain Post-op Diagnosis Same Procedure Performed Robotic total vaginal hysterectomy bilateral salpingectomy and extensive lysis of adhesions Surgeon Ye Frazier MD Anesthesia General Indications This is a 39 admitted for robotic hysterectomy salpingectomy secondary to pain enlarged uterus bleeding Findings Markedly enlarged uterus. Tubes status post tubal ligation. Marked amount of adhesions especially to the left the uterus. The bladder was scarred to fundus of the uterus. Description of Procedure Patient was prepped draped in the normal sterile fashion placed in dorsal lithotomy position. Under excellent general endotracheal anesthesia weighted speculum placed in posterior fornix of vagina. Anterior lip of the cervix was grasped with a single-tooth tenaculum. Uterus sounded to10.5cm. Serial dilatation with fragmented dilators bladder performed followed by passage of the 10. ANGÉLICA and the 2. 0.5 cold cup. Next the 16 [place] catheter was placed in bladder to drain clear urine. The weighted speculum in single-tooth removed. The gloves were changed. Supraumbilical incision made the Veress needle passed in the abdomen. Abdomen filled with CO2 gas [id number]. Patient placed in Trendelenburg after assuring no injury. 8mm trocars were placed at the right left lateral quadrant incisions. A right upper quadrant incision made the 8mm trocar advanced under direct visualization. The robot was docked. Attention was turned to the classification counselor. There was a marked amount of adherence from the bladder to the anterior upper portion of the uterus. Omental adhesions were markedly present in the left lateral quadrant. The uterus was not very mobile. Using sharp dissection the uterus was sharply dissected away from the anterior abdominal wall. The round ligament on the left was then grasped, burned, cut. Anteriorly a bladder flap was formed by a layer by layer sharp dissection until reaching the opposite round ligament which was clamped, burned, cut. Next left fallopian tube was sharply skeletonized away from the ovarian complex and left attached to the uterine origin. In similar fashion the right fallopian tube was extracted sharply dissected away from the ovarian complex this distal portion was passed off through the right upper quadrant incision and the stump left at the uterine origin. Next the left utero-ovarian ligament was skeletonized to conserve the left ovary this was clamped, burned, cut and brought to level of previously cut round ligament. Similar fashion the utero-ovarian ligament on the right was skeletonized to conserve the right ovary this was clamped, burned, cut and brought to level of previous cut round ligament. Cardinal broad ligaments on the left were then serially skeletonized clamping burning cutting until the large tortuous blood vessels were seen on the left these were individually clamped, burned, cut. In similar fashion on the right the cardinal broad ligaments were serially skeletonized clamping burning cutting and hugging the cervix uterus until the large tortuous uterine vessels were seen on the right these were individually clamped, burned, cut. Blanching of the uterus was noted a colpotomy incision was made the cervix uterus and remainder of the tubes removed through the vagina. The vagina was then closed with continuous running 0V lock from lateral edge to lateral edge back to midline. Irrigation undertaken to clear and [place] powder was placed over the raw surface area. Hemostasis was assured. The robot was undocked. The gas removed from the abdomen. The trocars removed the incisions closed with 4 Monocryl and glue. The patient was awakened went recovery in satisfactory condition. All sponge, needle, instrument counts were correct. QBL was 25cc were no complications noted Estimated Blood Loss 25 Drains No Packing No Pathology Yes Complications No immediate complications Condition Stable Disposition PACU
--- NOTE | 2024-12-19 08:38 | P.DS_ITS ---
DS: Admitting Diagnosis Discharge Date 12/20/2024 Admitting Diagnosis Fibroid uterus/excessive bleeding DS: Discharge Diagnosis Discharge Diagnosis (1) Uterine fibroid: Code(s): D25.9 - Leiomyoma of uterus, unspecified Status: Acute (2) Dysmenorrhea: Code(s): N94.6 - Dysmenorrhea, unspecified Status: Acute DS: Summary Hospital Course Reason for hospitalization: The patient was admitted on 12/19/2024 for robotic hysterectomy bilateral salpingectomy this involved extensive lysis of adhesions but was a smooth procedure. Hospital Course: Patient's hospital course unremarkable. She remained afebrile. She was up, voiding without difficulty, eating regular diet, ambulating, and generally without complaints. Time Spent with Patient Time attestation: Total time spent providing and/or coordinating discharge services: Exam Const: General: cooperative, healthy appearing, comfortable and overweight Orientation/consciousness: oriented to person, oriented to place and oriented to time HENMT: Head: normal to inspection Resp: Effort & Inspection: normal respiratory effort Cardio: Rate: regular rate Rhythm: regular rhythm Heart sounds: S1 normal heart sound present and S2 normal heart sound present GI: Inspection: normal to inspection and incision (Wounds are clean dry and intact) Auscultation: normal bowel sounds : External Female Exam: normal external appearance Speculum Exam - Vagina: normal appearance of the vagina Speculum Exam - Cervix: normal appearance of the cervix Bimanual exam- vagina & uterus: boggy, enlarged and Uterine tenderness Bimanual Exam- Adnexa, other: normal adnexae DS: Data Data Completed and Pending Pending studies at discharge: Pending at discharge 12/19/24 07:59 Surgical [PTH] Routine Discharge Plan Discharge Patient Disposition: Home Patient Language: Libyan Stand Alone Forms: General Discharge Instructions Follow-up/Referrals: Ye Hudson MD [Physician] - Discharge Medications: New hydrocodone-acetaminophen 5-325 mg tablet 1 tablet PO Q4H PRN (Reason: pain) Qty: 20 0RF No Action multivitamin Tablet 1 tablet PO DAILY ascorbic acid (vitamin C) [Vitamin C] 500 mg Tablet 500 mg PO DAILY lisinopril 10 mg Tablet 10 mg PO DAILY
[2024-12-19] MEDS: fentaNYL CITRATE INJ (*CRX) 100 MCG/2 ML VIAL 25 MCG IV PUSH ×2 (09:16→09:22)
[2024-12-19] MEDS: SCOPOLAMINE 1 MG PATCH 1 PATCH TRANSDERM (09:26)
--- NOTE | 2024-12-19 10:33 | ADMGEN ---
1017-This patient, Modesta Byrne, was admitted to OB 2nd Floor Room 289-00. Patient/family oriented to hospital policies and general routines including ID bracelet, bed and alarms, visiting hours, pain management, procedures, bathroom and other care routines, personal items, smoking policy, room service/diet, and visiting hours. Information on how to activate the Rapid Response Team has been discussed. Patient/Family are encouraged to report perceived risks to care and to ask questions if they do not understand what they are told or what they should do.
[2024-12-19] MEDS: DEXTROSE 5%/LACTATED RINGERS 1,000 ML 125 ML IV CONT (10:44)
[2024-12-19] MEDS: KETOROLAC 30 MG/ML VIAL (*BKC) IV PUSH ×2 (12:07→18:33)
[2024-12-19] MEDS: SIMETHICONE 80 MG TAB.CHEW PO ×2 (12:07→16:58)
[2024-12-19] MEDS: DOCUSATE SODIUM 100 MG CAPSULE PO (16:58)
[2024-12-19] MEDS: oxyCODONE HCL (*CRX) 5 MG TAB IR PO (16:58)
[2024-12-20 00:25] VITALS: BP 107/53; PULSE 59; RESP 16; TEMP 37; O2SAT 94
[2024-12-20] MEDS: KETOROLAC 30 MG/ML VIAL (*BKC) IV PUSH (00:29)
[2024-12-20] MEDS: ACETAMINOPHEN 500 MG TABLET 1000 MG PO ×2 (00:29→07:13)
[2024-12-20 04:57] VITALS: BP 97/47; PULSE 62; RESP 18; TEMP 36.8; O2SAT 95
[2024-12-20 05:19] LABS: Basophils Percent Auto 0.1 % (0.2-1.2); Eosinophils Percent Auto 0.1 % (0-4.4); Hemoglobin 10.9 g/dL (12.0-15.0); Immature Granulocyte Absolute 0.05 K/mm3 (0.00-0.031); Immature Granulocyte Percent A 0.3 % (0-0.5); Lymphocytes Absolute Auto 2.53 K/mm3 (0.9-3.2); Lymphocytes Percent Auto 17.7 % (18.3-44.2); Mean Corpuscular HGB Conc 32.1 g/dl (32-36); Mean Corpuscular Hemoglobin 27.1 pg (26-34); Mean Corpuscular Volume 84.6 fl (80-100); Mean Platelet Volume 9.5 fl (7.4-10.4); Monocytes Absolute Auto 0.9 K/mm3 (0.1-0.6); Monocytes Percent Auto 6.2 % (2.6-8.5); Neutrophils Absolute Auto 10.8 K/mm3 (1.3-6.7); Neutrophils Percent Auto 75.6 % (45.5-73.1); Platelet Count Result 345 k/mm3 (150-375); Red Blood Count 4.02 M/mm3 (4.2-5.4); Red Cell Distribution Width 14.2 % (11.5-14.5); White Blood Count 14.3 K/mm3 (4.5-10.0)
--- NOTE | 2024-12-20 06:10 | PC.NURSE ---
Report given to Elida Trujillo RN.
--- NOTE | 2024-12-20 07:09 | P.PNOB_ITS ---
FAMILY DEVELOPMENT SPECIALIST - A/P Assessment and plan (1) Dysmenorrhea: Code(s): N94.6 - Dysmenorrhea, unspecified Status: Acute (2) Uterine fibroid: Code(s): D25.9 - Leiomyoma of uterus, unspecified Status: Acute Plan Home today follow-up 2 weeks Postoperative Procedures: Procedures Operation Date: 12/19/24 07:30 Actual Procedure Side Surgeon p Robotic Assisted Total Vaginal Hysterectomy with Bilateral Salpingectomy Bilateral Ye Frazier MD Time Spent With Patient Time: Total time spent is greater than 50% in coordination of care (as documented) at patient's floor/unit and/or counseling patient: Time with patient: less than 15 minutes FAMILY DEVELOPMENT SPECIALIST- PN:Subj Post-Op Subjective Date/time seen: 12/20/24 07:09 Subjective: patient reports feeling better, patient has no complaints, patient desires discharge, pain is well controlled and patient is tolerating oral intake Exam 2 Const: General: cooperative, healthy appearing, comfortable and overweight Orientation/consciousness: oriented to person, oriented to place and oriented to time HENMT: Head: normal to inspection Resp: Effort & Inspection: normal respiratory effort Cardio: Rate: regular rate Rhythm: regular rhythm Heart sounds: S1 normal heart sound present and S2 normal heart sound present GI: Inspection: normal to inspection and incision (Wounds are clean dry and intact) Auscultation: normal bowel sounds : External Female Exam: normal external appearance Speculum Exam - Vagina: normal appearance of the vagina Speculum Exam - Cervix: normal appearance of the cervix Bimanual exam- vagina & uterus: boggy, enlarged and Uterine tenderness Bimanual Exam- Adnexa, other: normal adnexae FAMILY DEVELOPMENT SPECIALIST - PN: Obj Data Vital Signs Vital Signs: Vital Signs - 24 hr 12/19/24 08:44 12/19/24 08:55 12/19/24 09:10 Temperature 97.1 F L Pulse Rate 83 80 73 Respiratory Rate 12 18 18 Blood Pressure 99/57 L 100/59 L 112/66 Pulse Oximetry 95 100 98 Oxygen Delivery Simple Face Mask Simple Face Mask Room Air Oxygen Flow Rate 8 8 12/19/24 09:25 12/19/24 09:40 12/19/24 09:55 Temperature Pulse Rate 71 72 72 Respiratory Rate 16 16 16 Blood Pressure 106/62 110/72 99/62 L Pulse Oximetry 96 97 97 Oxygen Delivery Room Air Room Air Room Air Oxygen Flow Rate 12/19/24 10:07 12/19/24 10:22 12/19/24 10:45 Temperature 98.3 F Pulse Rate 67 71 71 Respiratory Rate 16 18 18 Blood Pressure 112/68 113/73 Pulse Oximetry 96 97 97 Oxygen Delivery Room Air Room Air Oxygen Flow Rate 12/19/24 16:30 12/19/24 16:30 12/19/24 20:10 Temperature 98.2 F 98.4 F Pulse Rate 70 70 67 Respiratory Rate 16 16 16 Blood Pressure 115/77 105/57 L Pulse Oximetry 98 98 95 Oxygen Delivery Room Air Oxygen Flow Rate 12/19/24 20:10 12/20/24 00:25 Temperature 98.6 F Pulse Rate 67 59 L Respiratory Rate 16 16 Blood Pressure 107/53 L Pulse Oximetry 95 94 Oxygen Delivery Room Air Oxygen Flow Rate Intake/Output Intake/Output: Intake & Output 12/17/24 12/18/24 12/19/24 12/20/24 23:59 23:59 23:59 23:59 Intake Total 1640 Output Total 1310 Balance 330 Meds/Results Medications: Active Medications Generic Name Dose Route Start Last Admin Trade Name Freq PRN Reason Stop Dose Admin Acetaminophen 1,000 mg 12/19/24 12:00 12/20/24 00:29 Acetaminophen 500 Mg Tablet PO 1,000 mg Q6HR GERALDINE Administration Docusate Sodium 100 mg 12/19/24 10:09 12/19/24 16:58 Docusate Sodium 100 Mg Capsule PO 100 mg BID GERALDINE Administration Enoxaparin Sodium 40 mg 12/19/24 10:09 12/19/24 10:30 Enoxaparin 40 Mg/0.4 Ml Syringe SUB-Q Not Given DAILY GERALDINE Dextrose/Lactated Ringer's 1,000 mls @ 125 mls/hr 12/19/24 10:09 12/20/24 07:09 Dextrose 5%/Lactated Ringers IV CONT Not Given .Q8H GERALDINE Ibuprofen 600 mg 12/20/24 06:00 Ibuprofen 600 Mg Tablet PO Q6HR GERALDINE Naloxone HCl 0.1 mg 12/19/24 10:09 Naloxone Hcl 0.4 Mg/Ml Vial IV PUSH Q2M PRN Respiratory rate less than 10 Ondansetron HCl 4 mg 12/19/24 10:09 Ondansetron Inj 4 Mg/2 Ml Vial IV PUSH Q6H PRN Nausea And Vomiting Oxycodone HCl 5 mg 12/19/24 10:09 12/19/24 16:58 Oxycodone Hcl (*Crx) 5 Mg Tab Ir PO 5 mg Q4H PRN Administration Pain Rated 4-6 Oxycodone HCl 10 mg 12/19/24 10:09 Oxycodone Hcl (*Crx) 5 Mg Tab Ir PO Q6H PRN Pain Rated 7-10 Simethicone 80 mg 12/19/24 12:00 12/19/24 16:58 Simethicone 80 Mg Tab.Chew PO 80 mg TIDWM GERALDINE Administration Labs 12/20/24 05:10 Labs: Laboratory Results - last 24 hr 12/20/24 05:10 WBC 14.3 H RBC 4.02 L Hgb 10.9 L Hct 34.0 L MCV 84.6 MCH 27.1 MCHC 32.1 RDW 14.2 Plt Count 345 MPV 9.5 Immature Gran % (Auto) 0.3 Neut % (Auto) 75.6 H Lymph % (Auto) 17.7 L Howell % (Auto) 6.2 Eos % (Auto) 0.1 Baso % (Auto) 0.1 L Lymph # (Auto) 2.53 Howell # (Auto) 0.9 H Eos # (Auto) 0.0 Baso # (Auto) 0.0 Abs Immat Gran (auto) 0.05 H Absolute Neuts (auto) 10.8 H Absolute Nucleated RBC 0.000 Nucleated RBC % 0.0
[2024-12-20] MEDS: IBUPROFEN 600 MG TABLET PO (07:13)
[2024-12-20] MEDS: SIMETHICONE 80 MG TAB.CHEW PO (07:13)
[2024-12-20 08:11] VITALS: BP 106/70; PULSE 67; RESP 18; TEMP 36.5; O2SAT 97
== END 2024-12-20 09:10 | disposition home or self-care (01) ==
LOC: ANHSURGERY 06:05 → ANHOB2 10:13
PROVIDERS: PCP Nurse Practitioner Family; Visit Provider Obstetrics & Gynecology
PROC: (CPT 58552; principal; 2024-12-19 07:30)
DX: N88.8 Other specified noninflammatory disorders of cervix uteri (principal); K66.0 Peritoneal adhesions (postprocedural) (postinfection); I10 Essential (primary) hypertension; E66.9 Obesity, unspecified; Z68.30 Body mass index [BMI] 30.0-30.9, adult; Z79.891 Long term (current) use of opiate analgesic; Z98.890 Other specified postprocedural states; Z98.51 Tubal ligation status; Z86.718 Personal history of other venous thrombosis and embolism; Z82.49 Family history of ischemic heart disease and other diseases of the circulatory system
CPT/HCPCS: 58552; S2900; 36415; 85025; 88307; 99199; A9270; J0690; J1100; J1171; J1885; J2003; J2250; J2405; J2704; J3010; J7030; J7120; J7121